=== PATIENT | female | born 1950 | race Caucasian/White ===

== ENCOUNTER 2022-07-26 08:59 | Observation (INO) ==
[2022-07-26] MEDS ORDERED: ONDANSETRON 4 MG OD TAB PO STA (09:07)
[2022-07-26] MEDS ORDERED: oxyCODONE HCL IR 5 MG TAB (IMMEDIATE RELEASE) PO STA (09:07)
[2022-07-26] MEDS ORDERED: ACETAMINOPHEN 500 MG TAB PO STA (09:07)
[2022-07-26] MEDS ORDERED: DIPHTHERIA/TETANUS/PERTUSSIS 0.5 ML SYR/VIAL IM ONE (09:07)
--- NOTE | 2022-07-26 09:12 | Emergency Department Note ---
Impression & Plan Fracture of proximal end of right tibia, Abrasion of right arm, Effusion of right knee joint, Fall ED Provider Note NAME: JAMEE BEAR AGE: 72 SEX: F : 1950 ARRIVES VIA: Ambulance INFORMANT: [Patient] ED PROVIDER(S): [Richmond Crouch MD] CHIEF COMPLAINT: Fall HISTORY OF PRESENT ILLNESS: The patient is a 72-year-old female who states that last night, she lost her footing and fell down 3 stairs. She twisted her right knee and suffered an abrasion to the right posterior upper arm. She did not lose consciousness or strike her head. There is no neck pain or back pain, chest pain or abdominal pain. She tried to rest the knee throughout the evening but this morning, could not bear any weight. The pain is a 10/10 when she tries to stand. She presents for evaluation. Patient believes she may be due for a tetanus booster, she is not on any blood thinning medications. The right arm wound is no longer bleeding and she believes it is fairly superficial. REVIEW OF SYSTEMS: See HPI for pertinent positives and negatives. A total of ten systems were reviewed and were otherwise negative. PMHx/PSHx: See Below SOCIAL HISTORY: See Below. PHYSICAL EXAM: GENERAL: Patient is in no acute distress. HEENT: No acute trauma, normocephalic atraumatic, mucous membranes moist, no nasal congestion, no scleral icterus. NECK: No stridor, no adenopathy, nontender posterior C-spine, trachea is midline. LUNGS: Clear to auscultation bilaterally, no wheeze, no rhonchi, breath sounds equal. Breath sounds are diminished bilaterally. HEART: Without murmurs gallops or rubs, regular rate and rhythm. ABDOMEN: Soft, nontender, bowel sounds positive, no peritonitis. EXTREMITIES: No cyanosis. The patient has no deformity to the right knee but there is some joint effusion present. She is tender diffusely about the knee. The patella and quadriceps tendons appear intact. The patella is in proper position. There is some contusion along the medial aspect of the knee. The patient has a 3 to 4 cm abrasion to the posterior aspect of the right upper arm/tricep. The abrasion is oval-shaped. No bleeding. NEUROLOGIC: Oriented x 3, no acute motor or sensory deficits, no focal weakness. SKIN: No rash, no jaundice, no diaphoresis. Back: Nontender thoracic or lumbar spine. No contusions. DIFFERENTIAL DIAGNOSIS: Fracture, dislocation, contusion, joint effusion, intra-abdominal bleeding, pneumothorax, intrathoracic injury, intracranial injury, as well as other pathologies. EMERGENCY DEPARTMENT COURSE/PROCEDURES: MEDICAL DECISION MAKING: There is no leukocytosis or worrisome anemia. There is a normal platelet count. No renal failure or significant electrolyte abnormality. COVID test is negative. Right knee film shows a fracture to both the tibial spines with extension to the lateral tibial plateau. A joint effusion was present. No bony malalignment. No significant displacement of the fracture fragments. On exam, the patient did have a right knee joint effusion, she had pain to move the knee. There was no evidence for right lower extremity neurovascular compromise. She had an abrasion to her right tricep. Patient received oral Tylenol, oral oxycodone, oral Zofran. She was given an Adacel booster IM. The patient is unable to ambulate, she lives alone. I did speak with orthopedics, Dr. Lake. He recommended rehab and toe-touch weightbearing if tolerated. He did not feel the patient would require orthopedic surgery. As the patient lives alone, as she cannot ambulate, she cannot be discharged. Case management has been consulted and is working on inpatient rehab at an outside facility versus rehab here in our facility. The on-call hospitalist was also consulted. Past Med/Surg History Medical History No significant medical problems Social History Smoking Status: Current every day smoker Tobacco Type: Cigarettes Feels Safe at Home: Yes Allergies Allergies Allergy/AdvReac Type Severity Reaction Status Date / Time No Known Allergies Allergy Verified 05/31/14 08:10 Home Meds Home Medications Medication Instructions Recorded Confirmed CALCIUM CARBONATE-VITAMIN D 2 mg PO DAILY ##0 12/26/13 (CALCIUM 600+D3) Multiple Vitamins W/ Minerals 1 tab PO DAILY ##0 12/26/13 (Multivitamins) ASPIRIN (ASPIRIN EC) 325 mg PO DAILY ##0 05/31/14 Results & Data (ED) Vital Signs Vital Signs - 24 hr 07/26/22 09:00 Temperature 36.8 C Temperature Source Oral Pulse Rate 108 H Respiratory Rate 18 Respiratory Effort / Characteristics Non-Labored Respiratory Depth Normal Respiratory Pattern Regular Blood Pressure 168/84 H Blood Pressure Mean 112 Blood Pressure Position Semi-fowlers Pulse Oximetry 94 Oxygen Delivery Method Room Air Sepsis Recent Fever Within 48 Hours No Sepsis New/Unexplained Change in Mental Status N/A Sepsis Action Taken by Nursing No Action Required Home Medications Current Medication List: was personally reviewed by me Laboratory Data Attestation: I reviewed the patient's lab results. Result diagrams: 07/26/22 10:00 07/26/22 10:00 Lab Results 07/26/22 07/26/22 07/26/22 Range/Units 09:55 10:00 10:00 WBC 10.31 (4.8-10.8) K/ul RBC 4.77 (3.93-5.22) M/uL Hgb 15.0 (12.0-16.0) g/dl Hct 42.9 (34.1-44.9) % MCV 89.9 (80.0-100.0) fL MCH 31.4 (25.0-34.0) pg MCHC 35.0 (32.0-36.0) g/dL RDW Std Deviation 47.0 H (36.4-46.3) fL RDW Coeff of Diane 14.3 (11.5-14.5) % Plt Count 174 (130-400) K/uL MPV 9.0 L (9.4-12.3) fL Sodium 133 L (136-145) mmol/L Potassium 4.2 (3.5-5.1) mmol/L Chloride 98 (98-107) mmol/L Carbon Dioxide 25 (21-32) mmol/L Anion Gap 10 (3-11) BUN 15 (6-23) mg/dl Creatinine 0.85 (0.6-1.2) mg/dl Est Cr Clr Drug Dosing 50.9 ml/min Est GFR ( Amer) 80.5 ml/min Est GFR (Non-Af Amer) 69.4 ml/min BUN/Creatinine Ratio 17.6 (10-20) Glucose 96 (70-99(Fasting)) mg/dl Calcium 9.1 (8.5-10.1) mg/dl SARS-CoV-2, RNA, NAAT NEGATIVE (NEGATIVE) Administered Medications Discontinued Medications Acetaminophen (Acetaminophen 500 Mg Tab) 1,000 mg PO NOW STA Stop: 07/26/22 09:08 Last Admin: 07/26/22 09:14 Dose: 1,000 mg Documented By: GET Diphtheria/Pertussis/Tetanus Vacc (Diphtheria/Tetanus/Pertussis 0.5 Ml Syr/Vial) 0.5 ml IM .ONCE ONE Stop: 07/26/22 09:08 Last Admin: 07/26/22 09:15 Dose: 0.5 ml Documented By: GET Ondansetron HCl (Ondansetron 4 Mg Od Tab) 4 mg PO NOW STA Stop: 07/26/22 09:08 Last Admin: 07/26/22 09:15 Dose: 4 mg Documented By: GET Oxycodone HCl (Oxycodone Hcl Ir 5 Mg Tab (Immediate Release)) 5 mg PO NOW STA Stop: 07/26/22 09:08 Last Admin: 07/26/22 09:15 Dose: 5 mg Documented By: GET Imaging Data Radiologist's Impression: Knee X-Ray 07/26/22 09:07 XR knee RT 3V CLINICAL HISTORY: Right knee pain following fall. COMPARISON: None FINDINGS: Alignment of the right knee is anatomic. Moderate joint effusion is present. No lipohemarthrosis is identified. Medial knee soft tissue swelling is present. Lucencies within the tibial spines are noted. There are adjacent ossific densities. The findings favor an acute avulsion fracture. There is also subtle lucency within the lateral tibial plateau suggestive of acute fracture. A tiny ossific fragment lateral to the lateral tibial plateau is noted. Joint spaces are preserved. IMPRESSION: 1. Lucencies within the tibial spines with adjacent ossific densities. The findings favor acute avulsion fracture of the tibial spines. Fracture likely extends into the lateral tibial plateau. No depression identified although suboptimally assessed by radiography. 2. Possible Segond fracture. This can be seen in setting of an ACL tear. 3. Moderate joint effusion. Medial knee soft tissue swelling. ACT 112: Negative or not required by law. Electronically signed by: Jose Rafael Crystal M.D. 07/26/2022 9:40 AM Discharge Plan Visit Data Chief Complaint: Fall Stated Complaint: Fall ED Provider: Richmond Crouch Discharge Problem: Fracture of proximal end of right tibia, Abrasion of right arm, Effusion of right knee joint, Fall Patient Disposition: Admitted As Inpatient Condition: Good Forms Stand Alone Forms: My [facility] Instant Opinion Prescriptions Prescriptions: No Action CALCIUM CARBONATE-VITAMIN D (CALCIUM 600+D3) 1 TAB tablet 2 mg PO DAILY Qty: 0 Multiple Vitamins W/ Minerals (Multivitamins) 1 CHW CHW 1 tab PO DAILY Qty: 0 ASPIRIN (ASPIRIN EC) 325 MG tablet 325 mg PO DAILY Qty: 0 Referrals Referrals: Bernarda Bermudez MD [Physician] -
--- NOTE | 2022-07-26 09:42 | XRay Report ---
XR knee RT 3V CLINICAL HISTORY: Right knee pain following fall. COMPARISON: None FINDINGS: Alignment of the right knee is anatomic. Moderate joint effusion is present. No lipohemart hrosis is identified. Medial knee soft tissue swelling is present. Lucencies within the tibial spines are noted. There are adjacent ossific densities. The findings favor an acute avulsion fracture. Ther e is also subtle lucency within the lateral tibial plateau suggestive of acute fracture. A tiny ossif ic fragment lateral to the lateral tibial plateau is noted. Joint spaces are preserved. IMPRESSION: 1. Lucencies within the tibial spines with adjacent ossific densities. The findings favor acute avuls ion fracture of the tibial spines. Fracture likely extends into the lateral tibial plateau. No depres elvin identified although suboptimally assessed by radiography. 2. Possible Segond fracture. This can be seen in setting of an ACL tear. 3. Moderate joint effusion. Medial knee soft tissue swelling. ACT 112: Negative or not required by law. Electronically signed by: Jose Rafael Crystal M.D. 07/26/2022 9:40 AM
[2022-07-26 10:09] LABS: Hematocrit (blood only) 42.9 % (34.1-44.9); Mean Corpuscular Hemoglobin 31.4 pg (25.0-34.0); Mean Corpuscular Volume 89.9 fL (80.0-100.0); Platelet Count 174 K/uL (130-400); RDW Coefficient of Variation 14.3 % (11.5-14.5); Red Blood Count 4.77 M/uL (3.93-5.22); White Blood Count 10.31 K/ul (4.8-10.8)
[2022-07-26 10:28] LABS: BUN Creatinine Ratio 17.6 (10-20); Calcium 9.1 mg/dl (8.5-10.1); Creatinine Clr Calc Pharmacy 50.9 ml/min; Est GFR (African American) 80.5 ml/min; Est GFR (Non-African American) 69.4 ml/min; Potassium 4.2 mmol/L (3.5-5.1)
--- NOTE | 2022-07-26 10:30 | History & Physical Report ---
Date of Service July 26, 2022 Assessment & Plan (1) Fracture of proximal end of right tibia: Plan: -Admit to med/surge for observation -Xray of the right knee showing acute avulsion fracture of the tibial spines of the right knee, likely extending into the right tibial plateau. Possible ACL tear as well -No other acute trauma noted on the imaging or exam -Patient currently unable to bear weight on the right knee -Ortho consult placed -PT/OT consult placed, patient would prefer to have PT/OT setup at home -ICE and raj wrap to the right knee -Q6h tylenol, q6h prn toradol for mod pain with q6h prn tramadol for breakthrough pain (2) Fall: Plan: -No other acute trauma -Patient did not hit head or lose consciousness, not on anticoagulations besides daily aspirin (3) Arthritis: Plan: -[employer] aspirin Plan The patient was discussed with Dr. Valencia at the time of the exam History of Present Illness Chief Complaint: Fall/right knee pain Primary Care Provider: NO PCP Doreen is a 72 year old female with a PMH significant for arthritis who presented to the [facility] ED on 07/26/22 with a chief complaint of right knee pain and ambulatory dysfunction. Per the patient, she fell down 3 steps last night causing her to twist her right knee and land on her right arm. She denies hitting her head or losing consciousness. The patient tried to rest her right knee overnight but has been unable to bear weight since the injury. In the ED the patient was found to be afebrile, hemodynamically stable, and stable on RA. She was without lab abnormalities; xray of the right knee revealed "Lucencies within the tibial spines with adjacent ossific densities. The findings favor acute avulsion fracture of the tibial spines. Fracture likely extends into the lateral tibial plateau. No depression identified although suboptimally assessed by radiography. Possible Segond fracture. This can be seen in setting of an ACL tear. Moderate joint effusion. Medial knee soft tissue swelling." The ED staff spoke with orthopedics who recommended PT/OT and rehab. At the time of the exam the patient was lying in bed in no acute distress. She states that she lives alone at home and was in her normal state of health. She was going down her stairs and slipped while going down the last few. She twisted her knee and was unable to bear weight. I spoke with her regarding her treatments options as orthopedics did not recommend surgery, she would prefer to have PT/OT setup at home instead of going to inpatient rehab. She has a full bathroom on her first floor with a shower chair and walker if needed. She also has multiple friends and family who live close by and can provide assistance if she needs. She is ok with coming [facility] so we can get everything setup. She states that the pain is located mostly on the lateral and medial aspects of her right knee. She feels as though it is still at the present time and has significant pain when flexion of her right knee. She denies pain in any other part of her body Allergies Allergy/AdvReac Type Severity Reaction Status Date / Time No Known Allergies Allergy Verified 05/31/14 08:10 Home Medications Medication Instructions Recorded Confirmed Type CALCIUM CARBONATE-VITAMIN D 2 mg PO DAILY ##0 12/26/13 History (CALCIUM 600+D3) Multiple Vitamins W/ Minerals 1 tab PO DAILY ##0 12/26/13 History (Multivitamins) ASPIRIN (ASPIRIN EC) 325 mg PO DAILY ##0 05/31/14 History Past Med/Surg History Medical History (Updated 07/26/22 @ 11:12 by Leonel Watts PA-C) No significant medical problems arthritis Social History Smoking Status: Current every day smoker Tobacco Type: Cigarettes Feels Safe at Home: Yes Review of Systems Review of Systems: Denies current fever, chills, headache, changes in vision, hearing, taste, and smell, chest pain, SOB, cough, abdominal pain, nausea, vomiting, diarrhea, hematemesis, melena, dysuria, hematuria All systems have been reviewed and are otherwise negative. Physical Exam Physical Exam: Physical Exam: General: In no acute distress, stated age, well-nourished, good hygiene HEENT: Normocephalic, atraumatic, no scleral icterus, pupils around round, symmetrical, and reactive to light, moist mucus membranes, trachea midline, no thyromegaly Chest/Pulm: No respiratory distress, symmetrical chest expansion, clear breath sounds throughout Cardiac: RRR, no murmurs noted Abdomen: Negative for ascites and bruising, normoactive bowel sounds, soft, non-tender to palpation throughout Musculoskeletal: Patient with moderate joint swelling of the right knee, no crepitus with palpation of the RLE, patient with decreased flexion and extension of the right knee due to pain Extremities: Radial, dorsalis pedis, and posterior tibial pulses are intact and symmetrical, no edema noted in the BL LE's Skin: Warm, dry, no rashes , lesions, or scars noted Neuro: Alert and oriented to person, place, month, year, and president, no focal defects, CN II-XII tested and intact, finger to nose test negative, no tremors noted Psych: No acute distress, calm and cooperative during the exam Results & Data Results & Data ([facility]) Vital Signs (Past 12 Hours) Vital Signs Temp Pulse Resp BP Pulse Ox O2 Del Method 07/26/22 09:00 36.8 C 108 H 18 168/84 H 94 Room Air Laboratory Results Abnormal lab results 07/26/22 07/26/22 Range/Units 10:00 10:00 RDW Std Deviation 47.0 H (36.4-46.3) fL MPV 9.0 L (9.4-12.3) fL Sodium 133 L (136-145) mmol/L Diagnostic Findings Knee X-Ray 07/26/22 09:07 XR knee RT 3V CLINICAL HISTORY: Right knee pain following fall. COMPARISON: None FINDINGS: Alignment of the right knee is anatomic. Moderate joint effusion is present. No lipohemarthrosis is identified. Medial knee soft tissue swelling is present. Lucencies within the tibial spines are noted. There are adjacent ossific densities. The findings favor an acute avulsion fracture. There is also subtle lucency within the lateral tibial plateau suggestive of acute fracture. A tiny ossific fragment lateral to the lateral tibial plateau is noted. Joint spaces are preserved. IMPRESSION: 1. Lucencies within the tibial spines with adjacent ossific densities. The findings favor acute avulsion fracture of the tibial spines. Fracture likely extends into the lateral tibial plateau. No depression identified although suboptimally assessed by radiography. 2. Possible Segond fracture. This can be seen in setting of an ACL tear. 3. Moderate joint effusion. Medial knee soft tissue swelling. ACT 112: Negative or not required by law. Electronically signed by: Jose Rafael Crystal M.D. 07/26/2022 9:40 AM ECG Additional Comments: No ECG obtained prior to admission Code Status & VTE Plan Code Status Full OCde Supervising Physician Co-Signing Physician Notes I supervised Leonel Watts PA-C on this admission. I interviewed and examined the patient independently of him. The plan is as written in his note except for any following changes/exceptions: None 72yo F w/ no major PMH who presents with mechanical fall and right tibial fracture. Patient fell down some steps, had immediate pain, and went to bed. This morning, she had 10/10 pain and had to come to the ER. In ER, x-ray showed likely "acute avulsion fracture of the tibial spines. Fracture likely extends into the lateral tibial plateau." Will admit for PT/OT. Patient does not want to go to SNF or rehab, but is willing to stay overnight to arrange home support. Consult orthopedics who was contacted in the ER re: Possible ACL tear. Pain control PRN. PG Care Time/CCT Total # of Minutes Spent Total Time Spent with Patient: Total time spent is greater than 50% in coordination of care (as documented) at patient's floor/unit and/or counseling patient: Coding Level of Care Code New Pt INT OBSERVATION CARE 72M LVL 3 Patient Type New Medical Decision Making Moderate Complexity Diagnoses Fracture of proximal end of right tibia S82.101A Encounter type: initial encounter Fracture morphology: unspecified fracture morphology Fracture type: closed Fall W19.XXXA Encounter type: initial encounter Arthritis M19.90 (1) Fracture of proximal end of right tibia Encounter type: initial encounter Fracture morphology: unspecified fracture morphology Fracture type: closed Qualified Code(s): S82.101A - Unspecified fracture of upper end of right tibia, initial encounter for closed fracture (2) Fall Encounter type: initial encounter Qualified Code(s): W19.XXXA - Unspecified fall, initial encounter
[2022-07-26] MEDS: traMADol HCL 50 MG TABLET PO PRN ×2 (14:00→18:02)
[2022-07-26] MEDS: ACETAMINOPHEN 325 MG TAB PO PRN ×2 (14:00→18:02)
--- NOTE | 2022-07-26 16:10 | Orthopedic Consultation ---
Date of Service July 26, 2022 Assessment & Plan (1) Fracture of proximal end of right tibia: With the tibial spine fracture in the lateral tibial plateau avulsion fracture, she may have torn her ACL. It is difficult to tell. She has a large effusion. I told her she can be weightbearing as tolerated as pain allowed. So likely take her 6 to 8 weeks to heal. She should continue with ice on the right knee. She is orthopedically stable for discharge when ready. I will see her in the office in about 10 days to see how she is doing and possibly aspirate the knee if the effusion persists. Full orthopedic discharge instructions were placed in the discharge summary. History of Present Illness Reason for Consultation: Right tibia fracture. Requesting Physician: . Attending Physician: Cristian Valencia MD Doreen is a pleasant 72-year-old female who fell late last night. She does not recall her mechanism of injury. She began having severe right knee pain. She came to the emergency room where radiographs demonstrated small avulsion fractures of the tibial spine and a possible Segond fracture fragment. She had a right knee effusion. She was unable to bear weight so she was admitted to the medical service. Orthopedics was consulted to evaluate and treat.. Allergies Allergy/AdvReac Type Severity Reaction Status Date / Time No Known Allergies Allergy Verified 05/31/14 08:10 Home Medications Medication Instructions Recorded Confirmed Type CALCIUM CARBONATE-VITAMIN D 2 mg PO DAILY ##0 12/26/13 History (CALCIUM 600+D3) Multiple Vitamins W/ Minerals 1 tab PO DAILY ##0 12/26/13 History (Multivitamins) ASPIRIN (ASPIRIN EC) 325 mg PO DAILY ##0 05/31/14 History Past Med/Surg History Medical History No significant medical problems arthritis Social History Smoking Status: Current every day smoker Tobacco Type: Cigarettes Cigarettes Per Day: 1/2 pack a day; Hx Alcohol Use: Yes Alcohol type: wine Hx Substance Use: No Preferred Language: Khmer Communication Ability: Effective President Of [place] Required: No Beliefs That Will Affect Care: None Current Living Situation: Alone Feels Safe at Home: Yes Review of Systems All systems reviewed & are unremarkable except as noted in HPI & below. Physical Exam On physical examination of the right knee, there is a large joint effusion. She has decreased range of motion. She has little bit of ecchymosis in the area. She is neurovascular intact.. Constitutional WD/WN, vitals as above Eyes PERRL, conjunctivae normal, anicteric sclerae ENMT external ear and nose normal, oropharynx normal Neck trachea midline, no thyromegaly Respiratory normal respiratory effort, lungs clear to auscultation Cardiovascular RRR, no murmur, no edema Gastrointestinal (Abdomen) normal bowel sounds, soft, nontender, no hepatosplenomegaly Skin no rashes, warm and dry Psychiatric A+Ox3, euthymic affect Results & Data Results & Data Laboratory Results . Diagnostic Findings X-rays of the right knee do show small avulsion fractures of the tibial spine. There is a little fracture off the lateral tibial plateau as well. There is signs of a large joint effusion.. PG Care Time/CCT Total # of Minutes Spent Total Time Spent with Patient: Total time spent is greater than 50% in coordination of care (as documented) at patient's floor/unit and/or counseling patient: Coding Level of Care Code 84184 Inpt Consult Level 4 Diagnoses Fracture of proximal end of right tibia S82.101A Encounter type: initial encounter Fracture morphology: unspecified fracture morphology Fracture type: closed (1) Fracture of proximal end of right tibia Encounter type: initial encounter Fracture morphology: unspecified fracture morphology Fracture type: closed Qualified Code(s): S82.101A - Unspecified fracture of upper end of right tibia, initial encounter for closed fracture
[2022-07-26] MEDS: KETOROLAC TROMETHAMINE 15 MG/ML VIAL IV PRN (19:57)
[2022-07-27] MEDS: KETOROLAC TROMETHAMINE 15 MG/ML VIAL IV PRN ×2 (05:48→10:58)
[2022-07-27] MEDS: CEROVITE ADV FORMULA TAB PO SCH (09:27)
[2022-07-27] MEDS: CALCIUM 600MG + VIT D 400 IU TAB PO SCH (09:27)
[2022-07-27] MEDS: ASPIRIN 325 MG ECTAB PO SCH (09:27)
[2022-07-27] MEDS: ACETAMINOPHEN 325 MG TAB PO PRN (17:45)
[2022-07-27] MEDS: traMADol HCL 50 MG TABLET PO PRN ×2 (17:46→21:48)
--- NOTE | 2022-07-27 22:24 | Hospitalist Progress Note ---
Date of Service July 27, 2022 Assessment & Plan (1) Fracture of proximal end of right tibia: Plan: -Admit to med/surge for observation -Xray of the right knee showing acute avulsion fracture of the tibial spines of the right knee, likely extending into the right tibial plateau. Possible ACL tear as well -No other acute trauma noted on the imaging or exam -Patient currently unable to bear weight on the right knee -Ortho consult placed -PT/OT consult placed, patient would prefer to have PT/OT setup at home -ICE and raj wrap to the right knee -Q6h tylenol, q6h prn toradol for mod pain with q6h prn tramadol for breakthrough pain (2) Fall: Plan: -No other acute trauma -Patient did not hit head or lose consciousness, not on anticoagulations besides daily aspirin (3) Arthritis: Plan: -GRILL CHEF aspirin Admission and Anticipated Discharge Date Admission Date: July 26, 2022 Subjective 72 yo female reports no new symptoms. She is asking for a brace. will discuss with ortho. Review of Systems Review of Systems: All systems reviewed & are unremarkable except as noted in HPI & below Physical Exam Physical Exam: General:In no acute distress, stated age, well- nourished, good hygiene HEENT:Normocephalic, atraumatic, no scleral icterus, pupils around round, symmetrical, and reactive to light, moist mucus membranes, trachea midline, no thyromegaly Chest/Pulm:No respiratory distress, symmetrical chest expansion, clear breath sounds throughout Cardiac:RRR, no murmurs noted Abdomen:Negative for ascites and bruising, normoactive bowel sounds, soft, non-tender to palpation throughout Musculoskeletal:Patient with moderate joint swelling of the right knee, no crepitus with palpation of the RLE, patient with decreased flexion and extension of the right knee due to pain Extremities:Radial, dorsalis pedis, and posterior tibial pulses are intact and symmetrical, no edema noted in the BL LE's Skin:Warm, dry, no rashes , lesions, or scars noted Neuro:Alert and oriented to person, place, month, year, and president, no focal defects, CN II-XII tested and intact, finger to nose test negative, no tremors noted Psych:No acute distress, calm and cooperative during the exam Results & Data Results & Data ([facility]) Vital Signs (Past 12 Hours) Vital Signs Temp Pulse Resp BP Pulse Ox O2 Del Method 07/27/22 22:10 36.8 C 73 16 111/73 91 Room Air 07/27/22 15:10 36.8 C 75 18 118/70 95 Room Air PG Care Time/CCT Total # of Minutes Spent Total Time Spent with Patient: Total time spent is greater than 50% in coordination of care (as documented) at patient's floor/unit and/or counseling patient: Coding Level of Care Code 73021 Subseq Hosp Care Lvl 2 Diagnoses Fracture of proximal end of right tibia S82.101A Encounter type: initial encounter Fracture morphology: unspecified fracture morphology Fracture type: closed Fall W19.XXXA Encounter type: initial encounter Arthritis M19.90 Time Spent (min) 25 (1) Fracture of proximal end of right tibia Encounter type: initial encounter Fracture morphology: unspecified fracture morphology Fracture type: closed Qualified Code(s): S82.101A - Unspecified fracture of upper end of right tibia, initial encounter for closed fracture (2) Fall Encounter type: initial encounter Qualified Code(s): W19.XXXA - Unspecified fall, initial encounter
[2022-07-28] MEDS: ACETAMINOPHEN 325 MG TAB PO PRN (05:05)
[2022-07-28] MEDS: traMADol HCL 50 MG TABLET PO PRN ×2 (05:06→09:13)
[2022-07-28] MEDS: CALCIUM 600MG + VIT D 400 IU TAB PO SCH (09:02)
[2022-07-28] MEDS: ASPIRIN 325 MG ECTAB PO SCH (09:02)
[2022-07-28] MEDS: CEROVITE ADV FORMULA TAB PO SCH (09:03)
--- NOTE | 2022-07-28 13:48 | Discharge Summary ---
Date of Service July 28, 2022 Admission HPI Per Admitting Provider Doreen is a 72 year old female with a PMH significant for arthritis who presented to the [facility] ED on 07/26/22 with a chief complaint of right knee pain and ambulatory dysfunction. Per the patient, she fell down 3 steps last night causing her to twist her right knee and land on her right arm. She denies hitting her head or losing consciousness. The patient tried to rest her right knee overnight but has been unable to bear weight since the injury. In the ED the patient was found to be afebrile, hemodynamically stable, and stable on RA. She was without lab abnormalities; xray of the right knee revealed "Lucencies within the tibial spines with adjacent ossific densities. The findings favor acute avulsion fracture of the tibial spines. Fracture likely extends into the lateral tibial plateau. No depression identified although suboptimally assessed by radiography. Possible Segond fracture. This can be seen in setting of an ACL tear. Moderate joint effusion. Medial knee soft tissue swelling." The ED staff spoke with orthopedics who recommended PT/OT and rehab. At the time of the exam the patient was lying in bed in no acute distress. She states that she lives alone at home and was in her normal state of health. She was going down her stairs and slipped while going down the last few. She twisted her knee and was unable to bear weight. I spoke with her regarding her treatments options as orthopedics did not recommend surgery, she would prefer to have PT/OT setup at home instead of going to inpatient rehab. She has a full bathroom on her first floor with a shower chair and walker if needed. She also has multiple friends and family who live close by and can provide assistance if she needs. She is ok with coming in for [facility] so we can get everything setup. She states that the pain is located mostly on the lateral and medial aspects of her right knee. She feels as though it is still at the present time and has significant pain when flexion of her right knee. She denies pain in any other part of her body Principal Diagnosis as stated below Discharge Exam General:In no acute distress, stated age, well-nourished, good hygiene HEENT:Normocephalic, atraumatic Chest/Pulm:No respiratory distress MSK: Brace around affteted knee Skin:Warm, dry, no rashes , lesions, or scars noted Neuro:Alert and oriented to person, Psych:No acute distress, calm and cooperative during the exam Discharge Data Allergies Allergy/AdvReac Type Severity Reaction Status Date / Time No Known Allergies Allergy Verified 05/31/14 08:10 Consultations 07/26/22 10:06 ED Decision to Admit Stat 07/26/22 11:02 Consult Orthopedic Surgery Routine Hospital Course (1) Fracture of proximal end of right tibia: -Admit to med/surge for observation -Xray of the right knee showing acute avulsion fracture of the tibial spines of the right knee, likely extending into the right tibial plateau. Possible ACL tear as well -No other acute trauma noted on the imaging or exam -Ortho consult placed : Possible ACL tear given her the tibial spine fracture in the lateral tibial plateau avulsion fracture, and large effusion.Can be weightbearing as tolerated as pain allowed. So likely take her 6 to 8 weeks to heal. Discharge instructions noted below. -PT/OT consult placed, -brace given. 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 ) Diet: Regular Addtl Attending Provider Instructions: Good afternoon Mrs. Castro, Recommend tramadol for moderate-severe pain medicine as needed. Will recommend tylenol around the clock every 8 hours to limit pain for the next 2 weeks. I also recommend taking stool softeners to help limit constipation that could be caused by tramadol. If you don't have a bowel movement in 2 days with no relief from the medicine prescribed, then please try miralax. In regards to your followup, if appears the Orthopedist would like for you to call their office for an appointment. Best regards, Navarro Hoskins Senior Case Manager Provider Instructions: ORTHOPEDIC INSTRUCTIONS Activity Recommendations: Weightbearing as tolerated as pain allows Use ice for 20 minutes on and 20 minutes off to help with the effusion. Follow-Up Visit: Follow-up with Dr. Lake in about 10 days. We will evaluate the knee closer and possibly aspirate the knee if necessary. Please call the office to make an appointment for a time that works for you. Pending Studies at Discharge: No Stand-Alone Forms: My [facility] [employer], Opioid Pain Management, Smoking Cessation Medications and DC Order Prescriptions: New acetaminophen 325 mg Tablet 650 mg PO Q8H Qty: 60 0RF tramadol 50 mg Tablet 50 mg PO Q4H PRN (Reason: pain, moderate) Qty: 30 0RF sennosides-docusate sodium [Senna with Docusate Sodium] 8.6-50 mg tablet 1 tab-cap PO DAILY PRN (Reason: constipation) Qty: 30 0RF Continued CALCIUM CARBONATE-VITAMIN D (CALCIUM 600+D3) 1 TAB tablet 2 mg PO DAILY Qty: 0 Multiple Vitamins W/ Minerals (Multivitamins) 1 CHW CHW 1 tab PO DAILY Qty: 0 ASPIRIN (ASPIRIN EC) 325 MG tablet 325 mg PO DAILY Qty: 0 Discharge Orders: Discharge Order (Routine); Ordered 07/28/22 Ordered By: Navarro Jaffe/Other Patient Handouts: Healthy Eating on the Go Admission Data Admit Date/Time: 07/26/22 11:00 Attending Provider: Navarro Worthy Admit Provider: Cristian Valencia Primary Care Provider: PCP,NO Other Providers: Martell Lake ; Cristian Valencia ; [facility] ; Regan Villanueva Other Interventions: Discharge Summary Assessment (RN) Last Done: 07/28/22 15:57 Coding Level of Care Code 26633 OBS Care - Discharge Diagnoses Fracture of proximal end of right tibia S82.101A Encounter type: initial encounter Fracture morphology: unspecified fracture morphology Fracture type: closed Fall W19.XXXA Encounter type: initial encounter Arthritis M19.90
== END 2022-07-28 16:59 | disposition home or self-care (01) ==
LOC: 3W 08:59 → ED 08:59 → SUATTDRO 11:00 → 3W 12:29
DX: F17.210 Nicotine dependence, cigarettes, uncomplicated; S82.101A Unspecified fracture of upper end of right tibia, initial encounter for closed fracture; Z79.82 Long term (current) use of aspirin; S40.811A Abrasion of right upper arm, initial encounter; W10.9XXA Fall (on) (from) unspecified stairs and steps, initial encounter; M19.90 Unspecified osteoarthritis, unspecified site; M25.461 Effusion, right knee

== ENCOUNTER 2022-11-03 08:00 | Inpatient (IN) ==
--- NOTE | 2022-11-03 08:11 | Emergency Department Note ---
Impression & Plan Acute GI bleeding, Tobacco abuse, Anemia ED Provider Note NAME: JAMEE BEAR AGE: 72 SEX: F : 1950 ARRIVES VIA: Walk-In INFORMANT: [Patient][, ] ED PROVIDER(S): [Sujit Lacy MD] Chief Complaint: Rectal bleeding HPI: Patient presents due to concern for rectal bleeding that began this morning. The patient states that she felt as though she she may have had some associated diarrhea but when she looked she seemed to have bloody bowel movements. Patient denies any chest pains or shortness of breath. No fatigue. The patient does take a baby aspirin last taken last evening the patient does smoke. The patient does drink wine occasionally with dinner but not every day. Patient did have a colonoscopy at 64 and was told to return in 10 years. No family history in parents or siblings of colon cancer. Remote history of colon cancer in an aunt. Patient has not had any GI bleeding before. Patient denies any vomiting or abdominal pains. ROS: See HPI for pertinent positives and negatives. A total of 10 systems were reviewed and otherwise negative. Past medical history: See below Surgical history: See below Social history: See below Physical Exam: GENERAL: NAD, [wearing a mask,] non-toxic. EYE EXAM: Normal conjunctiva. PERRL, no anisocoria and EOM's grossly intact w/o pain. NECK: Supple, no nuchal rigidity, no adenopathy, non-tender. No signs of meningismus. FROM of the neck with good chin to chest and neck extension. No stridor. LUNGS: Clear to auscultation. Normal chest wall mechanics. HEART: NSR, no MRG. ABDOMEN: Abdomen soft, non-tender, normo-active bowel sounds, no masses, no rebound or guarding. BACK: No CVA TTP. SKIN: No rashes and no bruising. Rectal: Nonthrombosed nonbleeding hemorrhoid, dark stool noted with blood, heme positive UPPER EXTREMITIES: Upper extremities are grossly normal. LOWER EXTREMITIES: Grossly normal, no edema. NEURO EXAM: A&O x3, cranial nerves II-XII grossly intact, normal speech, moves all 4 extremities. Differential diagnoses: Diverticulosis, AVM, coagulopathy, colitis, inflammatory bowel disease, malignancy, Radha-Briceño tear, esophagitis, peptic ulcer disease, variceal bleed, gastritis, epistaxis, fissure, hemorrhoids, as well as other pathologies. Course: Patient was seen and evaluated the bedside. Full history physical exam was performed. EKG interpreted by me Normal sinus rhythm, rate of 99 normal intervals normal axis no ST elevations. Imaging Studies: See Below Cardiac monitoring: An order was placed for continuous cardiac monitoring. The monitor shows a rate of 92 with sinus rhythm. MDM: Patient was seen due to concern for rectal bleeding. Blood work is obtained along with coags. Patient has a normal white count with mild anemia hemoglobin 11.6. Platelet count is normal. Patient does have mild hyponatremia. Elevated BUN/creatinine ratio. COVID-negative. I did speak with on-call gastroenterology MARIA E Schrader and after further discussion she does recommend admission at this time. I did speak with the on-call hospitalist Dr. Cardona. Given the patient's mixed appearing stool i.e. dark as well as mildly bright he only asked for 40 mg Protonix IV to be given at this time. This was ordered. I did convey the recommendations to the patient and she is agreeable to stay in hospital. Patient was admitted to the medicine service. Past Med/Surg History Surgical History No pertinent past surgical history Family History Grandfather Diabetes Father Diabetes Myocardial infarction Sister Hypertension Mother Myocardial infarction Denies family history of Ovarian cancer Prostate cancer Breast cancer Colorectal cancer Social History Smoking Status: Current every day smoker Tobacco Type: Cigarettes Cigarettes Per Day: 1/2 pack a day; Hx Alcohol Use: Yes Alcohol type: wine Hx Substance Use: No Preferred Language: Chadian Communication Ability: Effective Registered Land Surveyor Required: No Beliefs That Will Affect Care: None marital status: Current Living Situation: Alone Feels Safe at Home: Yes Assistive Devices: Walker and Wheelchair Allergies Allergies Allergy/AdvReac Type Severity Reaction Status Date / Time No Known Allergies Allergy Verified 07/30/22 13:21 Home Meds Home Medications Medication Instructions Recorded Confirmed aspirin 325 mg tablet 325 mg PO DAILY 07/30/22 07/30/22 Previous Rx's Medication Instructions Recorded acetaminophen 325 mg tablet 650 mg PO Q8H #60 tabs 07/28/22 sennosides 8.6 mg-docusate sodium 1 tab-cap PO DAILY PRN 07/28/22 50 mg tablet (Senna with Docusate constipation #30 tabs Sodium) tramadol 50 mg tablet 50 mg PO Q4H PRN pain, moderate 07/28/22 #30 tabs oxycodone-acetaminophen 5 mg-325 1 tab PO Q6H PRN pain #30 tabs 08/11/22 mg tablet (Percocet) Results & Data (ED) Vital Signs Vital Signs - 24 hr 11/03/22 08:06 11/03/22 09:00 11/03/22 10:00 Temperature 36.4 C L Temperature Source Temporal Artery Scan Pulse Rate 131 H Pulse Rate [Right Finger] 66 Respiratory Rate 16 14 Respiratory Effort / Characteristics Non-Labored Non-Labored Respiratory Depth Normal Normal Respiratory Pattern Regular Blood Pressure 106/69 Blood Pressure [Left Arm] 125/61 Blood Pressure Mean 81 Blood Pressure Mean [Left Arm] 82 Blood Pressure Position [Left Arm] Semi-fowlers Pulse Oximetry 98 97 97 Oxygen Delivery Method Room Air Room Air Room Air Sepsis Recent Fever Within 48 Hours No Sepsis New/Unexplained Change in Mental Status No Sepsis Action Taken by Nursing No Action Required Home Medications Current Medication List: was personally reviewed by me Laboratory Data Attestation: I reviewed the patient's lab results. Result diagrams: 11/03/22 08:51 11/03/22 08:51 Lab Results 11/03/22 11/03/22 11/03/22 Range/Units 08:21 08:51 08:51 WBC 7.90 (4.8-10.8) K/ul RBC 3.66 L (3.93-5.22) M/uL Hgb 11.6 L (12.0-16.0) g/dl Hct 33.5 L (34.1-44.9) % MCV 91.5 (80.0-100.0) fL MCH 31.7 (25.0-34.0) pg MCHC 34.6 (32.0-36.0) g/dL RDW Std Deviation 49.6 H (36.4-46.3) fL RDW Coeff of Diane 14.7 H (11.5-14.5) % Plt Count 226 (130-400) K/uL MPV 8.9 L (9.4-12.3) fL Immature Gran % (Auto) 0.4 % Neut % (Auto) 69.1 % Lymph % (Auto) 18.9 % Vernon % (Auto) 10.1 % Eos % (Auto) 0.9 % Baso % (Auto) 0.6 % Neut # (Auto) 5.46 (1.4-6.5) K/uL Lymph # (Auto) 1.49 (1.2-3.4) K/uL Vernon # (Auto) 0.80 (0.24-0.82) K/uL Eos # (Auto) 0.07 (0-0.50) K/uL Baso # (Auto) 0.05 (0-0.2) K/uL Immature Gran # (Auto) 0.03 H (0.00-0.02) K/uL PT (9.0-12.0) Seconds INR (0.9-1.1) APTT (21.0-31.0) Seconds PTT Ratio Sodium (136-145) mmol/L Potassium (3.5-5.1) mmol/L Chloride (98-107) mmol/L Carbon Dioxide (21-32) mmol/L Anion Gap (3-11) BUN (6-23) mg/dl Creatinine (0.6-1.2) mg/dl Est Cr Clr Drug Dosing ml/min Est GFR ( Amer) ml/min Est GFR (Non-Af Amer) ml/min BUN/Creatinine Ratio (10-20) Glucose (70-99(Fasting)) mg/dl Calcium (8.5-10.1) mg/dl Total Bilirubin (0.2-1.0) mg/dl AST (13-39) U/L ALT (7-52) U/L Alkaline Phosphatase (34-104) U/L Total Protein (6.0-8.3) gm/dl Albumin (3.4-5.0) gm/dl Globulin (2.5-4.0) gm/dl Albumin/Globulin Ratio (0.9-2) POC Stool Occult Blood Positive A (Negative) SARS-CoV-2, RNA, NAAT (NEGATIVE) Blood Type B Positive Antibody Screen NEGATIVE 11/03/22 11/03/22 11/03/22 Range/Units 08:51 08:51 09:40 WBC (4.8-10.8) K/ul RBC (3.93-5.22) M/uL Hgb (12.0-16.0) g/dl Hct (34.1-44.9) % MCV (80.0-100.0) fL MCH (25.0-34.0) pg MCHC (32.0-36.0) g/dL RDW Std Deviation (36.4-46.3) fL RDW Coeff of Diane (11.5-14.5) % Plt Count (130-400) K/uL MPV (9.4-12.3) fL Immature Gran % (Auto) % Neut % (Auto) % Lymph % (Auto) % Vernon % (Auto) % Eos % (Auto) % Baso % (Auto) % Neut # (Auto) (1.4-6.5) K/uL Lymph # (Auto) (1.2-3.4) K/uL Vernon # (Auto) (0.24-0.82) K/uL Eos # (Auto) (0-0.50) K/uL Baso # (Auto) (0-0.2) K/uL Immature Gran # (Auto) (0.00-0.02) K/uL PT 10.4 (9.0-12.0) Seconds INR 1.0 (0.9-1.1) APTT 24.8 (21.0-31.0) Seconds PTT Ratio 0.9 Sodium 135 L (136-145) mmol/L Potassium 4.1 (3.5-5.1) mmol/L Chloride 103 (98-107) mmol/L Carbon Dioxide 27 (21-32) mmol/L Anion Gap 5 (3-11) BUN 22 (6-23) mg/dl Creatinine 0.77 (0.6-1.2) mg/dl Est Cr Clr Drug Dosing 53.8 ml/min Est GFR ( Amer) 90.7 ml/min Est GFR (Non-Af Amer) 78.2 ml/min BUN/Creatinine Ratio 28.6 H (10-20) Glucose 101 H (70-99(Fasting)) mg/dl Calcium 8.5 (8.5-10.1) mg/dl Total Bilirubin 0.5 (0.2-1.0) mg/dl AST 11 L (13-39) U/L ALT 7 (7-52) U/L Alkaline Phosphatase 82 (34-104) U/L Total Protein 6.7 (6.0-8.3) gm/dl Albumin 3.9 (3.4-5.0) gm/dl Globulin 2.8 (2.5-4.0) gm/dl Albumin/Globulin Ratio 1.4 (0.9-2) POC Stool Occult Blood (Negative) SARS-CoV-2, RNA, NAAT NEGATIVE (NEGATIVE) Blood Type Antibody Screen Administered Medications Discontinued Medications Sodium Chloride (Nss) 500 mls @ 999 mls/hr IV .Q31M IVET Stop: 11/03/22 09:00 Last Infusion: 11/03/22 10:03 Dose: 0 mls/hr Documented By: Admin: 11/03/22 09:25 Dose: 999 mls/hr Documented By: AHMET Pantoprazole Sodium 40 mg/ (Syringe) 10 mls @ 5 mls/min IV NOW ONE Stop: 11/03/22 11:15 Last Admin: 11/03/22 12:21 Dose: 5 mls/min Documented By: STARLA Discharge Plan Visit Data Chief Complaint: Rectal Bleed Stated Complaint: BLOOD IN STOOL ED Provider: Sujit Lacy Discharge Problem: Acute GI bleeding, Tobacco abuse, Anemia Patient Disposition: Admitted As Inpatient Discharge Instructions Interventions: ED Discharge Assessment Last Done: 11/03/22 13:23
[2022-11-03] MEDS ORDERED: SODIUM CHLORIDE 0.9% 500 ML IV SCH (08:30)
[2022-11-03 09:10] LABS: Basophils # (auto) 0.05 K/uL (0-0.2); Basophils % (auto) 0.6 %; Eosinophils # (auto) 0.07 K/uL (0-0.50); Eosinophils % (auto) 0.9 %; Hematocrit (blood only) 33.5 % (34.1-44.9); Hemoglobin 11.6 g/dl (12.0-16.0); Immature Granulocytes # (auto) 0.03 K/uL (0.00-0.02); Immature Granulocytes % (auto) 0.4 %; Lymphocytes # (auto) 1.49 K/uL (1.2-3.4); Lymphocytes % (auto) 18.9 %; Mean Corpuscular Hemoglobin 31.7 pg (25.0-34.0); Mean Corpuscular Hgb Conc 34.6 g/dL (32.0-36.0); Mean Corpuscular Volume 91.5 fL (80.0-100.0); Mean Platelet Volume 8.9 fL (9.4-12.3); Monocytes % (auto) 10.1 %; Neutrophils # (auto) 5.46 K/uL (1.4-6.5); Neutrophils % (auto) 69.1 %; Platelet Count 226 K/uL (130-400); RDW Coefficient of Variation 14.7 % (11.5-14.5); RDW Standard Deviation 49.6 fL (36.4-46.3); Red Blood Count 3.66 M/uL (3.93-5.22)
[2022-11-03 09:24] LABS: Partial Thromboplastin Ratio 0.9; Partial Thromboplastin Time 24.8 Seconds (21.0-31.0); Prothrombin Time 10.4 Seconds (9.0-12.0)
[2022-11-03 10:07] LABS: Albumin Globulin Ratio 1.4 (0.9-2); Albumin Level 3.9 gm/dl (3.4-5.0); BUN Creatinine Ratio 28.6 (10-20); Bilirubin,Total 0.5 mg/dl (0.2-1.0); Calcium 8.5 mg/dl (8.5-10.1); Creatinine Clr Calc Pharmacy 53.8 ml/min; Est GFR (African American) 90.7 ml/min; Est GFR (Non-African American) 78.2 ml/min; Globulin 2.8 gm/dl (2.5-4.0); Potassium 4.1 mmol/L (3.5-5.1); Total Protein 6.7 gm/dl (6.0-8.3)
[2022-11-03] MEDS ORDERED: PANTOprazole 40 MG in SYRINGE 0 ML IV ONE ×2 (11:14→15:46)
--- NOTE | 2022-11-03 12:22 | History & Physical Report ---
Date of Service November 03, 2022 Assessment & Plan (1) GI bleed: Plan: Smoker, aspirin use Unclear if UGI vs. LGI bleed Pantoprazole 40mg IV BID Trend H&H q8h Consult gastroenterology - previous colonoscopy with Dr Stephens (2) Acute blood loss anemia: Plan: Type and screen sent (3) Smoking greater than 30 pack years: Plan: Encourage cessation Plan VTE Prophylaxis - SCDs Diet - clear liquids, NPO at midnight Disposition - observation status to med/tele Admission and Anticipated Discharge Date Admission Date: November 04, 2022 History of Present Illness Chief Complaint: Melena, dark red blood in stool Primary Care Provider: Regan Villanueva DO Doreen Castro is a 72 year old female who presents to the ER with dark red blood in stool mixed with black stool. She has never had this problem before but has been taking aspirin 325mg PO BID for her right knee pain recently (occasionally more than this) as it appears to be the only thing that works. No abdominal pain, nausea or vomiting. She woke up this morning with the black stool and dark red blood. She reports having a colonoscopy 8 years ago which was normal by Dr Stephens. Initial hemoglobin in the ER 11.6. She was given pantoprazole 40mg IV and on discussion by the ER provider with GI recommended admission under medicine at this time. Allergies Allergy/AdvReac Type Severity Reaction Status Date / Time No Known Allergies Allergy Verified 07/30/22 13:21 Home Medications Medication Instructions Recorded Confirmed Type acetaminophen 325 mg tablet 650 mg PO Q8H #60 tabs 07/28/22 07/30/22 Rx sennosides 8.6 mg-docusate sodium 1 tab-cap PO DAILY PRN 07/28/22 07/30/22 Rx 50 mg tablet (Senna with Docusate constipation #30 tabs Sodium) tramadol 50 mg tablet 50 mg PO Q4H PRN pain, moderate 07/28/22 07/30/22 Rx #30 tabs aspirin 325 mg tablet 325 mg PO DAILY 07/30/22 07/30/22 History oxycodone-acetaminophen 5 mg-325 1 tab PO Q6H PRN pain #30 tabs 08/11/22 08/11/22 Rx mg tablet (Percocet) Past Med/Surg History Surgical History No pertinent past surgical history Family History Grandfather Diabetes Father Diabetes Myocardial infarction Sister Hypertension Mother Myocardial infarction Denies family history of Ovarian cancer Prostate cancer Breast cancer Colorectal cancer Social History Smoking Status: Current every day smoker Tobacco Type: Cigarettes Cigarettes Per Day: 1/2 pack a day; Hx Alcohol Use: Yes Alcohol type: wine Hx Substance Use: No Preferred Language: Sinhala Communication Ability: Effective Sound Recording Technician Required: No Beliefs That Will Affect Care: None marital status: Current Living Situation: Alone Feels Safe at Home: Yes Assistive Devices: Cane and Glasses Review of Systems Review of Systems: All systems reviewed & are unremarkable except as noted in Subjective Physical Exam Constitutional: WD/WN, vitals as above Respiratory: normal respiratory effort, lungs clear to auscultation Cardiovascular: RRR, no murmur, no edema Extremities: normal capillary refill Gastrointestinal (Abdomen): normal bowel sounds, soft, nontender, no hepatosplenomegaly Musculoskeletal: no cyanosis or clubbing, extremities motor strength 5/5 Skin: no rashes, warm and dry Neurologic: moves all extremities and awake; not confused Psychiatric: A+Ox3, euthymic affect Results & Data Results & Data ([facility]) Vital Signs (Past 12 Hours) Vital Signs Temp Pulse Pulse Resp BP BP Pulse Ox 11/03/22 10:00 66 14 125/61 97 11/03/22 09:00 97 11/03/22 08:06 36.4 C L 131 H 16 106/69 98 O2 Del Method 11/03/22 10:00 Room Air 11/03/22 09:00 Room Air 11/03/22 08:06 Room Air Medications Administered ER Medications Given: NSS 500ml bolus Pantoprazole 40mg IV ECG Rate (beats per minute): 99 Rhythm: normal sinus Findings: + other (LVH); no acute ischemic change Comparison ECG Date: from (Dec 26, 2013) Change: no significant change Code Status & VTE Plan Code Status Full VTE Prophylaxis Plan VTE Prophylaxis will be ordered: Yes PG Care Time/CCT Total # of Minutes Spent Total Time Spent: 90 Total Time Spent with Patient: Total time spent is greater than 50% in coordination of care (as documented) at patient's floor/unit and/or counseling patient: Coding Level of Care Code 08413 Initial Inpt Care Lvl 3 Diagnoses GI bleed K92.2 Acute blood loss anemia D62 Smoking greater than 30 pack years F17.210
[2022-11-03] MEDS ORDERED: PNEUMOCOCCAL POLYSACCHARIDES 25 MCG/0.5 ML VIAL/SYR IM ONE (14:50)
[2022-11-03] MEDS ORDERED: INFLUENZA VACCINE HIGH DOSE PF 65+ 0.7 ML SYR IM ONE (14:50)
[2022-11-03] MEDS ORDERED: LACTATED RINGER'S 500 ML IV ONE (14:52)
[2022-11-03 15:24] LABS: Hematocrit (blood only) 26.1 % (34.1-44.9); Hemoglobin 8.8 g/dl (12.0-16.0)
[2022-11-03] MEDS ORDERED: SODIUM CHLORIDE 0.9% 250 ML IV PRN ×2 (15:54→16:57)
[2022-11-03] MEDS: PANTOprazole 40 MG in DEXTROSE 5% 100 ML IV SCH ×2 (15:57→21:23)
[2022-11-03] MEDS ORDERED: LACTATED RINGER'S 1,000 ML IV ONE (16:56)
--- NOTE | 2022-11-03 17:13 | Communication Note ---
Date of Service: November 03, 2022 Hgb drop from 11.6 -> 8.8. Patient made NPO and additional pantoprazole bolus given and started on IV drip. Informed pt with BP 74/33 and HR 108. On review of patient she had a clear liquid tray which I took away from her. Feeling fatigued but otherwise much the same as earlier in the day. No change in cognition or lightheadedness. Her arm size is in between blood pressure cuffs and I am inclined to believe the larger one with her sBP > 90 as she is not lightheaded and has excellent peripheral pulses. Two large bore IVs need to be in place. Blood consent signed. Will repeat H&H now with type and cross but regardless will start transfusion of 1 unit packed RBCs and transfer pt to PCU for ongoing care.
[2022-11-03 17:24] LABS: Hematocrit (blood only) 24.3 % (34.1-44.9); Hemoglobin 8.3 g/dl (12.0-16.0)
[2022-11-03] MEDS ORDERED: PANTOprazole 40 MG in SYRINGE 0 ML IV SCH (21:00)
[2022-11-03 21:54] LABS: Hematocrit (blood only) 24.1 % (34.1-44.9); Hemoglobin 8.2 g/dl (12.0-16.0)
[2022-11-04 00:43] LABS: Hematocrit (blood only) 22.7 % (34.1-44.9); Hemoglobin 7.8 g/dl (12.0-16.0)
[2022-11-04] MEDS: PANTOprazole 40 MG in DEXTROSE 5% 100 ML IV SCH ×5 (02:10→20:42)
[2022-11-04 07:08] LABS: Basophils # (auto) 0.05 K/uL (0-0.2); Basophils % (auto) 0.6 %; Eosinophils # (auto) 0.07 K/uL (0-0.50); Eosinophils % (auto) 0.9 %; Hemoglobin 7.1 g/dl (12.0-16.0); Immature Granulocytes # (auto) 0.04 K/uL (0.00-0.02); Immature Granulocytes % (auto) 0.5 %; Lymphocytes # (auto) 2.01 K/uL (1.2-3.4); Lymphocytes % (auto) 25.3 %; Mean Corpuscular Hemoglobin 30.2 pg (25.0-34.0); Mean Corpuscular Hgb Conc 33.8 g/dL (32.0-36.0); Mean Corpuscular Volume 89.4 fL (80.0-100.0); Mean Platelet Volume 8.9 fL (9.4-12.3); Monocytes # (auto) 0.76 K/uL (0.24-0.82); Monocytes % (auto) 9.5 %; Neutrophils # (auto) 5.03 K/uL (1.4-6.5); Neutrophils % (auto) 63.2 %; Platelet Count 144 K/uL (130-400); RDW Coefficient of Variation 15.9 % (11.5-14.5); RDW Standard Deviation 51.6 fL (36.4-46.3); Red Blood Count 2.35 M/uL (3.93-5.22); White Blood Count 7.96 K/ul (4.8-10.8)
[2022-11-04 07:44] LABS: BUN Creatinine Ratio 24.4 (10-20); Calcium 7.3 mg/dl (8.5-10.1); Creatinine Clr Calc Pharmacy 53.1 ml/min; Est GFR (African American) 89.3 ml/min; Potassium 4.3 mmol/L (3.5-5.1)
[2022-11-04 07:51] LABS: RBC Morphology Unremarkable
[2022-11-04 09:26] LABS: Hematocrit (blood only) 21.1 % (34.1-44.9); Hemoglobin 7.2 g/dl (12.0-16.0)
--- NOTE | 2022-11-04 09:44 | Gastrointestinal Consultation ---
Date of Consultation November 04, 2022 Assessment & Plan (1) Acute GI bleeding: (2) Acute blood loss anemia: Plan Diff dx: PUD vs AVM vs diverticular bleed vs malignancy vs other. 1. Clear liquid diet. 2. Transfuse to maintain Hgb>8. 3. Continue PPI ggt at 8 mg/hr. 4. Golytely bowel prep this evening. 5. NPO except sips with meds after midnight. 6. EGD and colonoscopy by Dr. Stephens tomorrow. 7. Further reccs pending results of testing. Thank you for allowing us to participate in the care of this patient. If you have any questions or concerns, please do not hesitate to contact us. History of Present Illness Reason for Consultation: Rectal bleeding Requesting Physician: Dr. Cardona Attending Physician: Ramesh Liu MD History of Present Illness Patient is a 72 y.o. female with a history of tobacco abuse and daily aspirin use admitted after an abrupt onset of bright red blood per rectum beginning yesterday. The blood is red with dark pieces of stool that fills the toilet bowl. She denies any associated abdominal pain or cramping, n/v or other GI complaints. She further denies any chest pain, shortness of breath, dizziness, syncope or fatigue. +palpitations. H&H on arrival was noted to be 11.6/33.5 and has dropped to 7.2/21.1. She is receiving a unit of PRBCs. No abdominal imaging. No family history of colorectal cancer or IBD. Last colonoscopy was performed by Dr. Stephens in 2013. Surveillance due 2023. Allergies Allergy/AdvReac Type Severity Reaction Status Date / Time No Known Allergies Allergy Verified 07/30/22 13:21 Home Medications Medication Instructions Recorded Confirmed Type acetaminophen 325 mg tablet 650 mg PO Q8H #60 tabs 07/28/22 07/30/22 Rx sennosides 8.6 mg-docusate sodium 1 tab-cap PO DAILY PRN 07/28/22 07/30/22 Rx 50 mg tablet (Senna with Docusate constipation #30 tabs Sodium) tramadol 50 mg tablet 50 mg PO Q4H PRN pain, moderate 07/28/22 07/30/22 Rx #30 tabs aspirin 325 mg tablet 325 mg PO DAILY 07/30/22 07/30/22 History oxycodone-acetaminophen 5 mg-325 1 tab PO Q6H PRN pain #30 tabs 08/11/22 08/11/22 Rx mg tablet (Percocet) Patient History Surgical History No pertinent past surgical history Family History Grandfather Diabetes Father Diabetes Myocardial infarction Sister Hypertension Mother Myocardial infarction Denies family history of Ovarian cancer Prostate cancer Breast cancer Colorectal cancer Social History Smoking Status: Current every day smoker Tobacco Type: Cigarettes Cigarettes Per Day: 1/2 pack a day; Hx Alcohol Use: Yes Alcohol type: wine Hx Substance Use: No Preferred Language: Syrian Communication Ability: Effective Fryer Operator Required: No Beliefs That Will Affect Care: None marital status: Current Living Situation: Alone Feels Safe at Home: Yes Assistive Devices: Cane and Glasses Review of Systems Review of Systems: All systems reviewed & are unremarkable except as noted in HPI & below Physical Exam Constitutional: WD/WN, vitals as above Eyes: EOM intact bilaterally Neck: normal appearance Respiratory: normal respiratory effort, lungs clear to auscultation Cardiovascular: Rate/Rhythm: regular rate and regular rhythm Heart Sounds: no gallop and no murmur Gastrointestinal (Abdomen): normal bowel sounds, soft, nontender, no hepatosplenomegaly Inspection/Auscultation: abdomen not distended Musculoskeletal: Extremities: no cyanosis no lower extremity edema Skin: no rashes, warm and dry Neurologic: moves all extremities Psychiatric: A+Ox3, euthymic affect Results & Data ([facility]) Vital Signs (Past 12 Hours) Vital Signs Temp Pulse Pulse Resp BP BP Pulse Ox 11/04/22 08:00 74 11/04/22 07:01 37.1 C 89 18 90/55 L 95 11/04/22 02:15 37.4 C 90 20 88/56 L 95 11/03/22 23:30 37.3 C 85 18 98/58 L 95 11/03/22 23:26 78 11/03/22 21:55 74 O2 Del Method 11/04/22 08:00 11/04/22 07:01 Room Air 12/20/22 02:15 Room Air 11/03/22 23:30 Room Air 11/03/22 23:26 11/03/22 21:55 Diagnostic Findings Laboratory Results WBC 7.96 K/ul (4.8-10.8) 11/04/22 06:46 RBC 2.35 M/uL (3.93-5.22) L 11/04/22 06:46 Hgb 7.2 g/dl (12.0-16.0) L 11/04/22 08:53 Hct 21.1 % (34.1-44.9) L 11/04/22 08:53 MCV 89.4 fL (80.0-100.0) 11/04/22 06:46 MCH 30.2 pg (25.0-34.0) 11/04/22 06:46 MCHC 33.8 g/dL (32.0-36.0) 11/04/22 06:46 RDW Std Deviation 51.6 fL (36.4-46.3) H 11/04/22 06:46 RDW Coeff of Diane 15.9 % (11.5-14.5) H 11/04/22 06:46 Plt Count 144 K/uL (130-400) 11/04/22 06:46 MPV 8.9 fL (9.4-12.3) L 11/04/22 06:46 Immature Gran % (Auto) 0.5 % 11/04/22 06:46 Neut % (Auto) 63.2 % 11/04/22 06:46 Lymph % (Auto) 25.3 % 11/04/22 06:46 [facility] % (Auto) 9.5 % 11/04/22 06:46 Eos % (Auto) 0.9 % 11/04/22 06:46 Baso % (Auto) 0.6 % 11/04/22 06:46 Neut # (Auto) 5.03 K/uL (1.4-6.5) 11/04/22 06:46 Lymph # (Auto) 2.01 K/uL (1.2-3.4) 11/04/22 06:46 [facility] # (Auto) 0.76 K/uL (0.24-0.82) 11/04/22 06:46 Eos # (Auto) 0.07 K/uL (0-0.50) 11/04/22 06:46 Baso # (Auto) 0.05 K/uL (0-0.2) 11/04/22 06:46 Immature Gran # (Auto) 0.04 K/uL (0.00-0.02) H 11/04/22 06:46 RBC Morphology Unremarkable 11/04/22 06:46 PT 10.4 Seconds (9.0-12.0) 11/03/22 08:51 INR 1.0 (0.9-1.1) 11/03/22 08:51 APTT 24.8 Seconds (21.0-31.0) 11/03/22 08:51 PTT Ratio 0.9 11/03/22 08:51 Sodium 137 mmol/L (136-145) 11/04/22 06:46 Potassium 4.3 mmol/L (3.5-5.1) 11/04/22 06:46 Chloride 108 mmol/L (98-107) H 11/04/22 06:46 Carbon Dioxide 24 mmol/L (21-32) 11/04/22 06:46 Anion Gap 5 (3-11) 11/04/22 06:46 BUN 19 mg/dl (6-23) 11/04/22 06:46 Creatinine 0.78 mg/dl (0.6-1.2) 11/04/22 06:46 Est Cr Clr Drug Dosing 53.1 ml/min 11/04/22 06:46 Est GFR ( Amer) 89.3 ml/min 11/04/22 06:46 Est GFR (Non-Af Amer) 77.0 ml/min 11/04/22 06:46 BUN/Creatinine Ratio 24.4 (10-20) H 11/04/22 06:46 Glucose 96 mg/dl (70-99(Fasting)) 11/04/22 06:46 Calcium 7.3 mg/dl (8.5-10.1) L 11/04/22 06:46 Total Bilirubin 0.5 mg/dl (0.2-1.0) 11/03/22 08:51 AST 11 U/L (13-39) L 11/03/22 08:51 ALT 7 U/L (7-52) 11/03/22 08:51 Alkaline Phosphatase 82 U/L (34-104) 11/03/22 08:51 Total Protein 6.7 gm/dl (6.0-8.3) 11/03/22 08:51 Albumin 3.9 gm/dl (3.4-5.0) 11/03/22 08:51 Globulin 2.8 gm/dl (2.5-4.0) 11/03/22 08:51 Albumin/Globulin Ratio 1.4 (0.9-2) 11/03/22 08:51 POC Stool Occult Blood Positive (Negative) A 11/03/22 08:21 SARS-CoV-2, RNA, NAAT NEGATIVE (NEGATIVE) 11/03/22 09:40 Blood Type B Positive 11/03/22 08:51 Blood Type Recheck B Positive 11/03/22 17:11 Antibody Screen NEGATIVE 11/03/22 08:51 Crossmatch See Detail 11/03/22 08:51 PG Care Time/CCT Total # of Minutes Spent Total Time Spent with Patient: Total time spent is greater than 50% in coordination of care (as documented) at patient's floor/unit and/or counseling patient: Coding Level of Care Code 45252 Initial Inpt Care Lvl 3 Diagnoses Acute GI bleeding K92.2 Acute blood loss anemia D62
[2022-11-04] MEDS ORDERED: IRON SUCROSE 200 MG in 0.9 % SODIUM CHLORIDE 100 ML IV ONE ×2 (11:48→12:00)
[2022-11-04 13:40] LABS: Hematocrit (blood only) 20.1 % (34.1-44.9); Hemoglobin 6.9 g/dl (12.0-16.0)
--- NOTE | 2022-11-04 18:05 | Hospitalist Progress Note ---
Date of Service November 04, 2022 Assessment & Plan (1) GI bleed: Plan: Smoker, aspirin use Unclear if UGI vs. LGI bleed, but possibly upper GI bleed, given patient has been taking aspirin, patient is going for EGD colonoscopy tomorrow, n.p.o. after Pantoprazole 40mg IV BID Trend H&H q8h Consult gastroenterology - previous colonoscopy with Dr Stephens (2) Acute blood loss anemia: Plan: Type and screen sent (3) Smoking greater than 30 pack years: Plan: Encourage cessation Plan VTE Prophylaxis - SCDs Diet - clear liquids, NPO at midnight Disposition - observation status to med/tele Admission and Anticipated Discharge Date Admission Date: November 04, 2022 Subjective Feels better today, had few bloody bowel movements, hemoglobin stable, started on IV iron, going for EGD colonoscopy tomorrow Physical Exam Constitutional: WD/WN, vitals as above Respiratory: normal respiratory effort, lungs clear to auscultation Cardiovascular: RRR, no murmur, no edema Extremities: normal capillary refill Gastrointestinal (Abdomen): normal bowel sounds, soft, nontender, no hepatosplenomegaly Musculoskeletal: no cyanosis or clubbing, extremities motor strength 5/5 Skin: no rashes, warm and dry Neurologic: moves all extremities and awake; not confused Psychiatric: A+Ox3, euthymic affect Results & Data Results & Data ([facility]) Vital Signs (Past 12 Hours) Vital Signs Temp Pulse Pulse Resp BP BP Pulse Ox 11/04/22 15:00 76 11/04/22 15:21 37.2 C 73 17 96/51 L 95 11/04/22 11:12 36.7 C 85 18 90/51 L 95 11/04/22 08:00 74 11/04/22 07:01 37.1 C 89 18 90/55 L 95 O2 Del Method 11/04/22 15:00 11/04/22 15:21 Room Air 11/04/22 11:12 Room Air 11/04/22 08:00 11/04/22 07:01 Room Air PG Care Time/CCT Total # of Minutes Spent Total Time Spent with Patient: Total time spent is greater than 50% in coordination of care (as documented) at patient's floor/unit and/or counseling patient: Coding Level of Care Code 56036 Subseq Hosp Care Lvl 2 Diagnoses GI bleed K92.2 Acute blood loss anemia D62 Smoking greater than 30 pack years F17.210
[2022-11-04] MEDS: LAVAGE SOLUTION 4000ML PO SCH (18:21)
[2022-11-04] MEDS ORDERED: LAVAGE SOLUTION 4000ML PO SCH (18:45)
[2022-11-04] MEDS ORDERED: SODIUM CHLORIDE 0.9% 250 ML IV PRN (20:15)
--- NOTE | 2022-11-04 20:16 | Communication Note ---
Date of Service: November 04, 2022 Received message from RN that patient's most recent Hgb at 12:54 was 6.9 with no f/u H/H ordered. Per review of GI note, recommendation to transfuse for Hgb goal of 8. No transfusion or follow-up H/H ordered. Will transfuse 2 units PRBCs at this time and plan to recheck H/H one hour after transfusion and trend q8h thereafter. Resident Activity Tracking Resident Involvement: Resident Care Provided Care Provided: Adult Hospital Medicine
--- NOTE | 2022-11-04 21:58 | Electrocardiogram Report ---
Test Reason : Blood Pressure : / mmHG Vent. Rate : 099 BPM Atrial Rate : 099 BPM P-R Int : 128 ms QRS Dur : 088 ms QT Int : 336 ms P-R-T Axes : 078 060 031 degrees QTc Int : 431 ms Normal sinus rhythm Possible Left atrial enlargement Left ventricular hypertrophy Nonspecific ST abnormality Abnormal ECG When compared with ECG of 26-DEC-2013 09:06, No significant change was found Confirmed by Bonilla Roberts ([id number]) on 11/04/2022 9:58:23 PM Referred By: REFERRED SELF Confirmed By:Bonilla Roberts
[2022-11-05] MEDS: PANTOprazole 40 MG in DEXTROSE 5% 100 ML IV SCH ×3 (02:14→12:09)
[2022-11-05 04:49] LABS: Hematocrit (blood only) 27.2 % (34.1-44.9); Hemoglobin 9.6 g/dl (12.0-16.0)
--- NOTE | 2022-11-05 09:40 | History & Physical Bridge Note ---
Date of Service November 05, 2022 History & Physical Bridge Note I have examined the patient, reviewed the History & Physical and in the interval since the performance of the History & Physical I have noted the following changes of clinical significance: Patient reports she completed 50% of the bowel preparation. Despite this, reports she is passing liquid with some blood. No abdominal pain. +Nausea but no vomiting. H&H this morning 9.6/27.2. PE: A&Ox3. Lungs CTA bilaterally. RRR. Abdomen soft, nontender. Normal bowel sounds. A/P: Acute blood loss anemia and rectal bleeding. -NPO for now. -Proceed with EGD and colonoscopy by Dr. Stephens today. -Continue PPI ggt at 8 mg/hr. -Further reccs pending results of testing. Supervising Physician Co-Signing Physician Notes Agree with MARIA E Oliver as above Abd: Soft, NT, ND, +BS Continue current therapy and supportive care Proceed with EGD and colonoscopy now
--- NOTE | 2022-11-05 13:01 | Anesthesiology Consultation ---
Date of Service November 05, 2022 Assessment & Plan (1) Encounter for pre-operative examination: Chart Review Chart Review: Acceptable Risk for Surgery, Patient NOT seen in Pre Admission Testing and entry level sales representative initiated Consults Requested none History Surgery Operation Date: 11/05/22 16:00 Proposed Procedures p Colonoscopy EGD Dr. Angelo Stephens, DO Height/Weight Height: 5 ft 2 in Weight: 55.8 kg Allergies Allergy/AdvReac Type Severity Reaction Status Date / Time No Known Allergies Allergy Verified 07/30/22 13:21 Medications Home Medications Medication Instructions Recorded Confirmed Last Taken acetaminophen 325 mg tablet 650 mg PO Q8H #60 tabs 07/28/22 07/30/22 Unknown sennosides 8.6 mg-docusate sodium 1 tab-cap PO DAILY PRN 07/28/22 07/30/22 Unknown 50 mg tablet (Senna with Docusate constipation #30 tabs Sodium) tramadol 50 mg tablet 50 mg PO Q4H PRN pain, moderate 07/28/22 07/30/22 Unknown #30 tabs aspirin 325 mg tablet 325 mg PO DAILY 07/30/22 07/30/22 Unknown oxycodone-acetaminophen 5 mg-325 1 tab PO Q6H PRN pain #30 tabs 08/11/22 08/11/22 Unknown mg tablet (Percocet) Active Medications Generic Name Dose Route Start Last Admin Trade Name Freq PRN Reason Stop Dose Admin Pantoprazole Sodium 40 mg/ 100 mls @ 20 mls/hr 11/03/22 16:00 11/05/22 12:09 Dextrose IV 12/03/22 15:59 8 mg/hr Q5H IVET 20 mls/hr Administration 8 MG/HR Past Medical History Medical History (Updated 11/05/22 @ 13:02 by Nael Ramesh MD) Encounter for pre-operative examination Past Family History Family History Grandfather Diabetes Father Diabetes Myocardial infarction Sister Hypertension Mother Myocardial infarction Denies family history of Ovarian cancer Prostate cancer Breast cancer Colorectal cancer Past Surgical History Surgical History No pertinent past surgical history Social History Smoking Status: Current every day smoker tobacco type: cigarettes Smoking cigarettes per day: 1/2 pack a day Hx Alcohol Use: Yes Alcohol type: wine alcohol intake frequency: 0-2 drinks per day Hx Substance Use: No substance use type: does not use Physical Exam Vital Signs Last Vital Signs Temp 36.7 C 11/05/22 11:37 Pulse 76 11/05/22 11:37 Resp 18 11/05/22 11:37 BP 108/57 L 11/05/22 11:37 Pulse Ox 98 11/05/22 11:37 O2 Del Method 11/05/22 11:37 Testing Laboratory Results 11/05/22 04:40 11/04/22 06:46 PT 10.4 Seconds (9.0-12.0) 11/03/22 08:51 INR 1.0 (0.9-1.1) 11/03/22 08:51 APTT 24.8 Seconds (21.0-31.0) 11/03/22 08:51 Blood Type B Positive 11/03/22 08:51 Antibody Screen NEGATIVE 11/03/22 08:51 Electrocardiogram Date: 11/03/22 Test Reason : Blood Pressure : / mmHG Vent. Rate : 099 BPM Atrial Rate : 099 BPM P-R Int : 128 ms QRS Dur : 088 ms QT Int : 336 ms P-R-T Axes : 078 060 031 degrees QTc Int : 431 ms Normal sinus rhythm Possible Left atrial enlargement Left ventricular hypertrophy Nonspecific ST abnormality Abnormal ECG When compared with ECG of 26-DEC-2013 09:06, No significant change was found Confirmed by Bonilla Roberts ([id number]) on 11/04/2022 9:58:23 PM
[2022-11-05 13:22] LABS: Hematocrit (blood only) 26.8 % (34.1-44.9); Hemoglobin 9.4 g/dl (12.0-16.0)
[2022-11-05] MEDS ORDERED: PROPOFOL IV EMULSION 10 MG/ML 20 ML VIAL IV ONE (14:52)
[2022-11-05] MEDS ORDERED: LIDOCAINE 2% MPF LOCAL 5 ML VIAL INFIL ONE (14:52)
[2022-11-05] MEDS ORDERED: ONDANSETRON INJ 2 MG/ML 2 ML VIAL ONE (14:52)
--- NOTE | 2022-11-05 16:01 | GI REPORT ---
Patient Name: Doreen Castro Procedure Date: 11/05/2022 3:07 PM Date of : 1950 Admit Type: Inpatient Age: 72 Gender: Female Attending MD: Josep Stephens DO, Procedure: Colonoscopy Providers: Josep Stephens DO Referring MD: Ramesh Liu Md Indications: Acute post hemorrhagic anemia Medicines: Monitored Anesthesia Care Complications: No immediate complications. Estimated Blood Loss: Estimated blood loss: none. Procedure: Pre-Anesthesia Assessment: - Prior to the procedure, a History and Physical was performed, and patient medications and allergies were reviewed. The patient's tolerance of previous anesthesia was also reviewed. The risks and benefits of the procedure and the sedation options and risks were discussed with the patient. All questions were answered, and informed consent was obtained. Prior Anticoagulants: The patient has taken no anticoagulant or antiplatelet agents except for aspirin. ASA Grade Assessment: III - A patient with severe systemic disease. After reviewing the risks and benefits, the patient was deemed in satisfactory condition to undergo the procedure. After I obtained informed consent, the scope was passed under direct vision. Throughout the procedure, the patient's blood pressure, pulse, and oxygen saturations were monitored continuously. The Colonoscope was introduced through the anus and advanced to the terminal ileum. The colonoscopy was performed without difficulty. The patient tolerated the procedure well. The quality of the bowel preparation was good. The terminal ileum, the appendiceal orifice and the rectum were photographed. Findings: The perianal and digital rectal examinations were normal. Hematin (altered blood/akiqeo-nkclbj-ubev material) was found in the rectum, in the sigmoid colon and in the descending colon. Multiple small-mouthed diverticula were found in the sigmoid colon. Non-bleeding internal hemorrhoids were found during retroflexion. The hemorrhoids were small. Impression: - Blood in the rectum, in the sigmoid colon and in the descending colon. - Diverticulosis in the sigmoid colon. - Non-bleeding internal hemorrhoids. - No specimens collected. Recommendation: - Resume previous diet. - Continue present medications. - No repeat colonoscopy due to age and the absence of advanced adenomas. - Return to primary care physician as previously scheduled. Josep Stephens DO 11/05/2022 4:00:47 PM This report has been signed electronically. Note Initiated On: 11/05/2022 3:07 PM Number of Addenda: 0 I attest to the content of the Intraoperative Record and orders documented therein, exceptions below {[id number]}
--- NOTE | 2022-11-05 16:04 | GI REPORT ---
Patient Name: Doreen Castro Procedure Date: 11/05/2022 3:08 PM Date of : 1950 Admit Type: Inpatient Age: 72 Gender: Female Attending MD: Josep Stephens DO, Procedure: Upper GI endoscopy Providers: Josep Stephens DO Referring MD: Ramesh Liu Md Indications: Acute post hemorrhagic anemia Medicines: Monitored Anesthesia Care Complications: No immediate complications. Estimated Blood Loss: Estimated blood loss: none. Procedure: Pre-Anesthesia Assessment: - Prior to the procedure, a History and Physical was performed, and patient medications and allergies were reviewed. The patient's tolerance of previous anesthesia was also reviewed. The risks and benefits of the procedure and the sedation options and risks were discussed with the patient. All questions were answered, and informed consent was obtained. Prior Anticoagulants: The patient has taken no anticoagulant or antiplatelet agents except for aspirin. ASA Grade Assessment: III - A patient with severe systemic disease. After reviewing the risks and benefits, the patient was deemed in satisfactory condition to undergo the procedure. After obtaining informed consent, the endoscope was passed under direct vision. Throughout the procedure, the patient's blood pressure, pulse, and oxygen saturations were monitored continuously. The Colonoscope was introduced through the mouth, and advanced to the second part of duodenum. The upper GI endoscopy was accomplished without difficulty. The patient tolerated the procedure well. Findings: The esophagus was normal. Localized mild inflammation characterized by erythema was found in the gastric antrum. Biopsies were taken with a cold forceps for histology. Localized moderately erythematous mucosa without active bleeding and with no stigmata of bleeding was found in the duodenal bulb. Impression: - Normal esophagus. - Gastritis. Biopsied. - Erythematous duodenopathy. Recommendation: - Resume previous diet. - Recommend Protonix 40 mg by mouth each morning 1/2 hour prior to breakfast. - Await pathology results. - Return to primary care physician as previously scheduled. Josep Stephens DO 11/05/2022 4:03:42 PM This report has been signed electronically. Note Initiated On: 11/05/2022 3:08 PM Number of Addenda: 0 I attest to the content of the Intraoperative Record and orders documented therein, exceptions below {[id number]}
--- NOTE | 2022-11-05 16:07 | Anesthesiology Progress Note ---
Date of Service November 05, 2022 Anesthesia Post Procedure Vital Signs Vital Signs: Temp Pulse Pulse Resp BP BP BP 11/05/22 16:04 103 H 20 109/62 11/05/22 15:49 91 H 16 85/52 L 11/05/22 15:00 85 11/05/22 14:43 36.6 C 67 16 127/66 11/05/22 11:37 36.7 C 76 18 108/57 L 11/05/22 08:01 78 11/05/22 07:59 36.6 C 84 20 114/59 L 11/05/22 03:45 36.7 C 78 18 115/58 L 11/05/22 03:17 36.7 C 71 18 105/50 L 11/05/22 02:17 36.7 C 79 18 95/52 L 11/05/22 02:09 36.7 C 83 18 97/45 L 11/05/22 01:17 36.8 C 66 18 95/51 L 11/05/22 00:47 36.8 C 67 18 95/49 L 11/05/22 00:32 36.8 C 73 18 95/53 L 11/05/22 00:13 37 C 81 18 110/66 11/04/22 23:56 36.8 C 75 18 112/58 L 11/04/22 23:02 36.8 C 88 18 96/48 L 11/04/22 22:02 36.4 C L 66 18 117/68 11/04/22 21:32 36.8 C 65 18 96/57 L 11/04/22 21:17 37.2 C 80 18 89/45 L 11/04/22 21:00 36.8 C 66 18 98/50 L 11/04/22 19:13 36.7 C 81 18 99/62 L Pulse Ox O2 Del Method 11/05/22 16:04 99 Room Air 11/05/22 15:49 99 Room Air 11/05/22 15:00 11/05/22 14:43 96 Room Air 11/05/22 11:37 98 Room Air 11/05/22 08:01 11/05/22 07:59 93 Room Air 11/05/22 03:45 98 11/05/22 03:17 98 11/05/22 02:17 96 11/05/22 02:09 96 Room Air 11/05/22 01:17 96 11/05/22 00:47 98 11/05/22 00:32 98 11/05/22 00:13 94 11/04/22 23:56 96 11/04/22 23:02 96 11/04/22 22:02 96 11/04/22 21:32 97 11/04/22 21:17 96 11/04/22 21:00 97 11/04/22 19:13 97 Room Air Transfer of Care Handoff Completed per policy Notes Mental Status: alert / awake / arousable and participated in evaluation Patient Amnestic to Procedure: Yes Nausea / Vomiting: adequately controlled Pain: adequately controlled Airway Patency, RR, SpO2: stable & adequate BP & HR: stable & adequate Hydration State: stable & adequate Anesthetic Complications: no major complications apparent and Pt Satisfied with anesthetic care
--- NOTE | 2022-11-05 20:25 | Discharge Summary ---
Date of Service November 05, 2022 Admission HPI Per Admitting Provider Doreen Castro is a 72 year old female who presents to the ER with dark red blood in stool mixed with black stool. She has never had this problem before but has been taking aspirin 325mg PO BID for her right knee pain recently (occasionally more than this) as it appears to be the only thing that works. No abdominal pain, nausea or vomiting. She woke up this morning with the black stool and dark red blood. She reports having a colonoscopy 8 years ago which was normal by Dr Stephens. Initial hemoglobin in the ER 11.6. She was given pantoprazole 40mg IV and on discussion by the ER provider with GI recommended admission under medicine at this time. Principal Diagnosis GI bleed most likely upper GI bleed due to gastritis and using aspirin Severe anemia due to GI bleed, required 1 unit of packed RBC Discharge Exam Constitutional WD/WN, vitals as above Respiratory normal respiratory effort, lungs clear to auscultation Cardiovascular RRR, no murmur, no edema Extremities: normal capillary refill Gastrointestinal (Abdomen) normal bowel sounds, soft, nontender, no hepatosplenomegaly Musculoskeletal no cyanosis or clubbing, extremities motor strength 5/5 Skin no rashes, warm and dry Neurologic moves all extremities and awake; not confused Psychiatric A+Ox3, euthymic affect Discharge Data Allergies Allergy/AdvReac Type Severity Reaction Status Date / Time No Known Allergies Allergy Verified 07/30/22 13:21 Consultations 11/03/22 11:14 ED Decision to Admit Stat 11/03/22 12:30 Consult Gastroenterology Routine Procedures Performed Operation Date: 11/05/22 16:00 Actual Procedures p EGD Biopsy Cytology - Josep La Case, DO s Colonoscopy - Josep La Case, DO Hospital Course (1) GI bleed: Patient has been using high-dose of aspirin for knee pain, patient GI bleed was painless, colonoscopy was unremarkable EGD showed evidence of gastritis, initially patient was started on PPI intravenously twice daily, as per GI recommendation patient was discharged on PPI and a daily basis and to follow-up with GI in 1 week for (2) Acute blood loss anemia: Presented with hemoglobin 6.97.2, received 1 unit of packed RBC, hemoglobin prior to discharge was 9.4 (3) Smoking greater than 30 pack years: Encourage cessation Plan VTE Prophylaxis - SCDs Diet - clear liquids, NPO at midnight Disposition - observation status to med/tele Total Time Total Time Spent Total Time Spent (In Minutes): 45 Discharge Plan Discharge Items Patient Disposition: Home - Self-Care Reason For Visit: GI BLEEDING Discharge Diagnosis: Gastrointestinal bleeding Activity: Resume your previous activity Lifting: Gradually increase as tolerated Bathing: No limitations Sexual Activity: When tolerated Exercise/Sports: None and Gradually increase as tolerated Driving/Machine Use: No limitations Non-emergency contact: Primary Care Provider and Drafting Supervisor Call non-emergency contact if: you have any medication questions and your symptoms worsen Follow-up/Referrals: Vamsi Garcia MD [Physician] - Regan Villanueva, [Primary Care Provider] - Diet: Heart Healthy Addtl Attending Provider Instructions: please follow with your [employer] in one month Pending Studies at Discharge: No Stand-Alone Forms: My [employer], Smoking Cessation Medications and DC Order Prescriptions: New dexlansoprazole 30 mg capsule,biphase delayed releas 30 mg PO DAILY 28 Days Qty: 28 0RF Nano-Sequels (iron-vit c) 200 mg (65 mg iron)-25 mg tablet extended release 1 tab PO DAILY Qty: 90 0RF Continued oxycodone-acetaminophen [Percocet] 5-325 mg tablet 1 tab PO Q6H PRN (Reason: pain) Qty: 30 0RF acetaminophen 325 mg Tablet 650 mg PO Q8H Qty: 60 0RF tramadol 50 mg Tablet 50 mg PO Q4H PRN (Reason: pain, moderate) Qty: 30 0RF sennosides-docusate sodium [Senna with Docusate Sodium] 8.6-50 mg tablet 1 tab-cap PO DAILY PRN (Reason: constipation) Qty: 30 0RF Discontinued aspirin 325 mg tablet 325 mg PO DAILY Discharge Orders: Discharge Order (Routine); Ordered 11/05/22 Ordered By: Ramesh Liu Admission Data Admit Date/Time: 11/04/22 11:13 Attending Provider: Ramesh Liu Admit Provider: Felipe Cardona Primary Care Provider: Regan Villanueva Other Providers: Felipe Cardona ; Vamsi Garcia Other Interventions: Discharge Summary Assessment (RN) Last Done: 11/05/22 16:54 Coding Level of Care Code D/C DAY MANAGEMENT >30 MINS Diagnoses GI bleed K92.2 Acute blood loss anemia D62 Smoking greater than 30 pack years F17.210
== END 2022-11-05 17:48 | disposition home or self-care (01) | DRG 813 ==
LOC: ED 08:00 → EDINP 08:00 → SUATTDRO 11:14 → 2W 13:23 → 2S 19:47

== ENCOUNTER 2024-10-23 09:00 | Inpatient (IN) ==
[2024-10-23] MEDS: METOPROLOL TARTRATE 1 MG/ML VIAL IV STA ×2 (09:14→17:24)
--- NOTE | 2024-10-23 09:19 | Emergency Department Note ---
Impression & Plan ISLAS (dyspnea on exertion), Smoking greater than 30 pack years, Fall, Pulmonary edema, Atrial paroxysmal tachycardia ED Provider Note Provider: Ean Cruz MD CHIEF COMPLAINT: Shortness of breath HISTORY OF PRESENT ILLNESS: Patient is a 74-year-old female past medical history of GI bleed presenting here today from home. Reports prickly today but some yesterday has been feeling more short of breath with exertion. Denies any chest pain. Did miss 2 steps about 3 weeks ago walking outside and fell. Had some bruising to her left arm and chest but did not come to the hospital for that. States it was not a big deal. Patient relates however the last several days he is just been more short of breath. Some around has had some cough and cold symptoms but she denies fever or new significant cough. Reports some chronic sinus drainage. Denies leg swelling. Denies any GI upset, melena, vomiting, diarrhea, or abdominal pain. Patient is a smoker. Not normally on oxygen denies a history of COPD as far as she knows. States she is hungry and did not have her morning cup of coffee yet. Per EMS noted to have frequent periods of what appear to be rapid A-fib. No recent travel. No cardiac history besides a valve issue reported. PAST MEDICAL HISTORY: As noted above MEDICATIONS: Reviewed home medications SOCIAL HISTORY: Smoker, lives at home with her dog PHYSICAL EXAM: GENERAL: alert and oriented in no acute distress on stretcher Head: normocephalic and atraumatic EYES: No injection, discharge or icterus. EOMI. NECK: Trachea midline. ENT: Mucous membranes pink and moist. LUNGS: Airway patent. No retractions. Breath sounds clear with good air entry bilaterally. HEART: Irregular occasionally tachycardic rate and rhythm. ABDOMEN: Soft and non-tender, without guarding or rebound. Stable pelvis SKIN: Acyanotic, warm, dry, with some scattered contusion extensively over the left upper arm and left chest. EXTREMITIES: Without swelling, tenderness or deformity NEUROLOGICAL: No focal deficits. No aphasia. No facial droop or slurred speech. Ambulatory. EKG: Variable but about 145 bpm of sinus rhythm followed by periods of rapid atrial fibrillation/atrial tachycardia. Inferior lateral T wave changes and questionable ST depression. No acute ST segment elevation noted. QTc 357. CONTINUOUS CARDIAC MONITORING: was ordered and showed a heart rate of 120s to 200s bpm in atrial tachycardia with periods of sinus tachycardia Patient's laboratory studies and imaging reviewed. Differential includes Reactive airway disease, pneumonia, pneumothorax, COPD, CHF, infections, cardiac ischemia, arrhythmia, heart valvular issues, pulmonary embolism, musculoskeletal, gastrointestinal, traumatic injury, as well as other pathologies. IMPRESSION/MEDICAL DECISION MAKING: Patient in no distress. Oxygen level in the high 80s. Is a longtime smoker. Not significant short of breath at rest but predict with exertion. Denies any chest pain. Did have a recent fall several weeks ago with extensive contusions of the left arm and upper chest. Telemetry and EKG do catch.'s what appear to be rapid A-fib/atrial tachycardia that then spontaneously and paroxysmally flow [id number] to a sinus tachycardia. No significant swelling of the lower extremities and no bilateral calf tenderness. Given a dose of IV metoprolol to see if this will help control these periods of rapid A-fib. TSH and electrolytes sent in addition to basic labs. Given the recent fall will obtain CT imaging of the chest as well as traumatic injury to the head, neck, and abdomen pelvis to exclude an occult bleed or other traumatic injury. Will also attempt to exclude PE with this. Patient's borderline oxygen likely with her chronic smoking exacerbated by her tachycardia periods. 1 view chest x-ray per my interpretation with evidence of what appears to be some pulmonary edema particularly in the lower dick without pneumothorax or free air. Some cardiomegaly noted. Radiology agrees concerning for pulmonary edema and cardiomegaly. Blood work here without anemia. Nonspecific leukocytosis 11.1. No severe electrolyte abnormality signs of renal dysfunction. Troponin just slightly high at 29. TSH slightly off of 5.6 but not severely so. Respiratory viral panel pending. Given the fall again CT causey scan contained within angiogram of the chest to exclude PE and further evaluate for any obvious parenchymal issue. CT with evidence of some fluid overload and no conclusive evidence of PE. No significant concerning traumatic injuries are noted on radiology reports reviewed. Heart rate still continues to be very variable/labile sometimes in the 70s and then into the high 170s. Discussed with the patient that given her periods of rapid A-fib/atrial tachycardia would recommend that we observe her especially with the mild new oxygen requirement she needs further cardiac workup here at the hospital. Patient and sister updated at bedside and agreeable with plan. Hospitalist contacted. Will defer any anticoagulation given her recent fall. DIAGNOSIS: Paroxysmal A-fib with RVR, dyspnea on exertion, smoker DISPOSITION: Hospitalist will evaluate Patient was agreeable with this plan. Critical Care I have personally spent 33 minutes of critical care time in the direct management of this patient. This includes bedside care, interpretation of diagnostic studies, and testing, discussion with consultants, patient, and family members, and other required patient management activities. These 33 minutes is in excess of all separately billable procedures. Past Med/Surg History Problem List (Updated 10/23/24 @ 16:31 by Ean Cruz M.D.) Atrial paroxysmal tachycardia (Acute) Severe mitral regurgitation Moderate pulmonary hypertension PSVT (paroxysmal supraventricular tachycardia) Tachycardia CHF (congestive heart failure) Tachy-presley syndrome Elevated troponin COPD (chronic obstructive pulmonary disease) Hypoxia Pulmonary edema (Acute) ISLAS (dyspnea on exertion) (Acute) History of tibial fracture (07/26/22) Fracture of proximal end of right tibia from a fall Arthritis Anxiety and depression Anemia (Acute) Tobacco abuse (Acute) Acute GI bleeding (Acute) Encounter for pre-operative examination Acute blood loss anemia GI bleed Smoking greater than 30 pack years (Acute) Abrasion of right arm (Acute) Effusion of right knee joint (Acute) Fall (Acute) Surgical History No pertinent past surgical history Family History Grandfather Diabetes Father Diabetes Myocardial infarction Sister Hypertension Mother Myocardial infarction Denies family history of Ovarian cancer Prostate cancer Breast cancer Colorectal cancer Social History Smoking Status: Current every day smoker Tobacco Type: Cigarettes Cigarettes Per Day: 1/2 pack a day; Hx Alcohol Use: Yes Alcohol type: wine Hx Substance Use: No Preferred Language: Thai Communication Ability: Effective Import/Export Clerk Required: No Beliefs That Will Affect Care: None marital status: Current Living Situation: Alone Feels Safe at Home: Yes Assistive Devices: Brace/Splint/Immobilizer, Cane and Wheelchair Allergies Allergies Allergy/AdvReac Type Severity Reaction Status Date / Time No Known Allergies Allergy Verified 07/30/22 13:21 Home Meds Home Medications Medication Instructions Recorded Confirmed Calcium + D 1 tab PO DAILY 10/23/24 10/23/24 acetaminophen 325 mg tablet 650 mg PO Q8H PRN Pain 10/23/24 10/23/24 multivitamin 1 tab PO DAILY 10/23/24 10/23/24 Results & Data (ED) Vital Signs Vital Signs - 24 hr 10/23/24 09:13 10/23/24 09:13 10/23/24 09:13 Temperature 36.7 C 36.7 C Temperature Source Oral Oral Pulse Rate 196 H Pulse Rate [Apical] Pulse Rhythm Irregular Respiratory Rate 17 17 Respiratory Effort / Characteristics Non-Labored Non-Labored Respiratory Depth Normal Normal Blood Pressure 155/99 H Blood Pressure [Right Arm] Blood Pressure Mean 117 Blood Pressure Mean [Right Arm] Blood Pressure Position Lying Pulse Oximetry 90 90 90 Oxygen Delivery Method Room Air Room Air Room Air Oxygen Flow Rate Sepsis Recent Fever Within 48 Hours No Sepsis New/Unexplained Change in Mental Status No Sepsis Action Taken by Nursing No Action Required 10/23/24 09:13 10/23/24 09:14 10/23/24 09:20 Temperature Temperature Source Pulse Rate 152 H Pulse Rate [Apical] Pulse Rhythm Respiratory Rate Respiratory Effort / Characteristics Respiratory Depth Blood Pressure 155/99 H Blood Pressure [Right Arm] Blood Pressure Mean Blood Pressure Mean [Right Arm] Blood Pressure Position Pulse Oximetry 90 85 L Oxygen Delivery Method Room Air Room Air Oxygen Flow Rate Sepsis Recent Fever Within 48 Hours Sepsis New/Unexplained Change in Mental Status Sepsis Action Taken by Nursing 10/23/24 09:20 10/23/24 09:30 10/23/24 09:36 Temperature Temperature Source Pulse Rate 187 H 108 H Pulse Rate [Apical] Pulse Rhythm Respiratory Rate Respiratory Effort / Characteristics Respiratory Depth Blood Pressure 125/83 Blood Pressure [Right Arm] Blood Pressure Mean Blood Pressure Mean [Right Arm] Blood Pressure Position Pulse Oximetry 91 Oxygen Delivery Method Nasal Cannula Oxygen Flow Rate 2 Sepsis Recent Fever Within 48 Hours Sepsis New/Unexplained Change in Mental Status Sepsis Action Taken by Nursing 10/23/24 11:01 Temperature Temperature Source Pulse Rate Pulse Rate [Apical] 123 H Pulse Rhythm Respiratory Rate 20 Respiratory Effort / Characteristics Non-Labored Respiratory Depth Normal Blood Pressure Blood Pressure [Right Arm] 130/79 Blood Pressure Mean Blood Pressure Mean [Right Arm] 96 Blood Pressure Position Pulse Oximetry 100 Oxygen Delivery Method Nasal Cannula Oxygen Flow Rate 2 Sepsis Recent Fever Within 48 Hours Sepsis New/Unexplained Change in Mental Status Sepsis Action Taken by Nursing Laboratory Data 10/23/24 09:11 10/23/24 09:11 Lab Results 10/23/24 10/23/24 10/23/24 Range/Units 09:11 09:27 10:52 WBC 11.12 H (4.8-10.8) K/ul RBC 4.39 (4.20-5.40) M/uL Hgb 14.3 (12.0-16.0) g/dl Hct 42.7 (37.0-47.0) % MCV 97.3 (80.0-100.0) fL MCH 32.6 (25.0-34.0) pg MCHC 33.5 (32.0-36.0) g/dL RDW Std Deviation 45.3 (36.4-46.3) fL RDW Coeff of Diane 12.6 (11.5-14.5) % Plt Count 326 (130-400) K/uL MPV 9.4 (9.4-12.4) fL Immature Gran % (Auto) 0.4 % Neut % (Auto) 78.7 % Lymph % (Auto) 10.9 % Kent % (Auto) 8.5 % Eos % (Auto) 0.8 % Baso % (Auto) 0.7 % Neut # (Auto) 8.74 H (1.40-6.50) K/uL Lymph # (Auto) 1.21 (1.20-3.40) K/uL Kent # (Auto) 0.95 H (0.11-0.59) K/uL Eos # (Auto) 0.09 (0.00-0.50) K/uL Baso # (Auto) 0.08 (0.00-0.20) K/uL Immature Gran # (Auto) 0.05 (0.01-0.20) K/uL PT 10.9 (9.0-12.0) Seconds INR 1.0 (0.9-1.1) APTT 25 (21-31) Seconds PTT Ratio 0.9 Sodium 139 (136-145) mmol/L Potassium 4.2 (3.5-5.1) mmol/L Chloride 105 (98-107) mmol/L Carbon Dioxide 27 (21-32) mmol/L Anion Gap 7 (3-11) BUN 16 (6-23) mg/dl Creatinine 0.77 (0.6-1.2) mg/dl Est Cr Clr Drug Dosing 54.6 ml/min eGFR 81.91 BUN/Creatinine Ratio 20.8 H (10-20) Glucose 106 H (70-99(Fasting)) mg/dl Calcium 9.2 (8.6-10.3) mg/dl Magnesium 2.0 (1.7-2.4) mg/dl Total Bilirubin 1.0 (0.2-1.0) mg/dl AST 20 (13-39) U/L ALT 22 (7-52) U/L Alkaline Phosphatase 115 H (34-104) U/L Troponin I High Sens 29.5 H 32.8 H (0-14) pg/ml B-Natriuretic Peptide (0-100) pg/ml Total Protein 7.0 (6.0-8.3) gm/dl Albumin 3.9 (3.4-5.0) gm/dl Globulin 3.1 (2.5-4.0) gm/dl Albumin/Globulin Ratio 1.3 (0.9-2) TSH 5.677 H (0.300-4.500) uIu/ml Free T4 0.85 (0.61-1.60) ng/dl Adenovirus (PCR) Not Detected (NotDetected) B. pertussis DNA (PCR) Not Detected (NotDetected) B.parapertussis DNA PCR Not Detected (NotDetected) C. pneumoniae DNA (PCR) Not Detected (NotDetected) Coronavirus OC43 (PCR) Not Detected (NotDetected) Coronavirus HKU1 (PCR) Not Detected (NotDetected) Coronavirus 229E (PCR) Not Detected (NotDetected) SARS-CoV-2 (PCR) Not Detected (NotDetected) Coronavirus NL63 (PCR) Not Detected (NotDetected) Human Metapneumovir PCR Not Detected (NotDetected) Influenza Type A (PCR) Not Detected (NotDetected) Influenza Type B (PCR) Not Detected (NotDetected) M. pneumoniae (PCR) Not Detected (NotDetected) Parainfluenza 1 (PCR) Not Detected (NotDetected) Parainfluenza 2 (PCR) Not Detected (NotDetected) Parainfluenza 3 (PCR) Not Detected (NotDetected) Parainfluenza 4 (PCR) Not Detected (NotDetected) RSV (PCR) Not Detected (NotDetected) Entero/Rhino (PCR) Not Detected (NotDetected) 10/23/24 Range/Units 12:27 WBC (4.8-10.8) K/ul RBC (4.20-5.40) M/uL Hgb (12.0-16.0) g/dl Hct (37.0-47.0) % MCV (80.0-100.0) fL MCH (25.0-34.0) pg MCHC (32.0-36.0) g/dL RDW Std Deviation (36.4-46.3) fL RDW Coeff of Diane (11.5-14.5) % Plt Count (130-400) K/uL MPV (9.4-12.4) fL Immature Gran % (Auto) % Neut % (Auto) % Lymph % (Auto) % Kent % (Auto) % Eos % (Auto) % Baso % (Auto) % Neut # (Auto) (1.40-6.50) K/uL Lymph # (Auto) (1.20-3.40) K/uL Kent # (Auto) (0.11-0.59) K/uL Eos # (Auto) (0.00-0.50) K/uL Baso # (Auto) (0.00-0.20) K/uL Immature Gran # (Auto) (0.01-0.20) K/uL PT (9.0-12.0) Seconds INR (0.9-1.1) APTT (21-31) Seconds PTT Ratio Sodium (136-145) mmol/L Potassium (3.5-5.1) mmol/L Chloride (98-107) mmol/L Carbon Dioxide (21-32) mmol/L Anion Gap (3-11) BUN (6-23) mg/dl Creatinine (0.6-1.2) mg/dl Est Cr Clr Drug Dosing ml/min eGFR BUN/Creatinine Ratio (10-20) Glucose (70-99(Fasting)) mg/dl Calcium (8.6-10.3) mg/dl Magnesium (1.7-2.4) mg/dl Total Bilirubin (0.2-1.0) mg/dl AST (13-39) U/L ALT (7-52) U/L Alkaline Phosphatase (34-104) U/L Troponin I High Sens (0-14) pg/ml B-Natriuretic Peptide 1624 H (0-100) pg/ml Total Protein (6.0-8.3) gm/dl Albumin (3.4-5.0) gm/dl Globulin (2.5-4.0) gm/dl Albumin/Globulin Ratio (0.9-2) TSH (0.300-4.500) uIu/ml Free T4 (0.61-1.60) ng/dl Adenovirus (PCR) (NotDetected) B. pertussis DNA (PCR) (NotDetected) B.parapertussis DNA PCR (NotDetected) C. pneumoniae DNA (PCR) (NotDetected) Coronavirus OC43 (PCR) (NotDetected) Coronavirus HKU1 (PCR) (NotDetected) Coronavirus 229E (PCR) (NotDetected) SARS-CoV-2 (PCR) (NotDetected) Coronavirus NL63 (PCR) (NotDetected) Human Metapneumovir PCR (NotDetected) Influenza Type A (PCR) (NotDetected) Influenza Type B (PCR) (NotDetected) M. pneumoniae (PCR) (NotDetected) Parainfluenza 1 (PCR) (NotDetected) Parainfluenza 2 (PCR) (NotDetected) Parainfluenza 3 (PCR) (NotDetected) Parainfluenza 4 (PCR) (NotDetected) RSV (PCR) (NotDetected) Entero/Rhino (PCR) (NotDetected) Administered Medications Discontinued Medications Furosemide (Furosemide Inj 20 Mg/2 Ml Vial) 20 mg IV ONE ONE Stop: 10/23/24 12:15 Last Admin: 10/23/24 12:27 Dose: 20 mg Documented By: KEN Ioversol (Optiray 320 125ml) 112 ml IV ONCE ONE Stop: 10/23/24 10:21 Last Admin: 10/23/24 10:20 Dose: 112 ml Documented By: SAMMIE Metoprolol Tartrate (Metoprolol Tartrate 1 Mg/Ml Vial) 5 mg IV NOW STA Stop: 10/23/24 09:11 Last Admin: 10/23/24 09:14 Dose: 5 mg Documented By: MOISES Imaging Data Radiologist's Impression: Chest X-Ray 10/23/24 09:05 XR chest 1V portable HISTORY: 74 years-old Female Dyspnea, recent fall COMPARISON: 12/26/2023 TECHNIQUE: AP view of the chest FINDINGS: Heart is normal in size. Atherosclerosis of the aorta. No pneumothorax. Layering pleural effusions with bibasilar consolidation. Pulmonary vascular congestion with interstitial coarsening. Degenerative changes of the shoulders and spine. IMPRESSION: 1. Cardiomegaly with pulmonary edema. 2. Layering pleural effusions with bibasilar consolidation. ACT 112: Negative or not required by law. The above report was generated using voice recognition software. It may contain grammatical, syntax or spelling errors. Electronically signed by: Niall Latham M.D. 10/23/2024 10:03 AM Abdomen/Pelvis CT 10/23/24 09:41 CT angio chest PE protocol, CT abd pelvis IV con only HISTORY: 74 years-old Female with PE, ISLAS, fall L chest contusions, new Afib. Acute left-sided chest pain status post fall TECHNIQUE: Multiple CTA images of the chest were obtained after the intravenous administration of 112 ml Optiray. Coronal and sagittal MIPS were obtained from the axial data set and were submitted for review. All measurements were obtained according to NASCET criteria. CT abdomen and pelvis with IV contrast only also obtained. A dose lowering technique was utilized adhering to the principles of ALARA. COMPARISON: None. FINDINGS: CTA: Moderate cardiomegaly without pericardial effusion. Extensive coronary artery calcifications. The thoracic aorta was not well evaluated secondary to contrast bolus timing. There is atherosclerosis without aneurysm or dissection. Dilation of the main pulmonary artery at 3.1 cm. No central pulmonary emboli are identified. The segmental and subsegmental branches are suboptimally evaluated secondary to contrast bolus timing. Well-defined filling defect/mixing artifact noted within segmental and subsegmental branches of the lung bases. CT CHEST: Unremarkable thyroid. Nonspecific borderline-enlarged mediastinal and hilar lymph nodes measure up to approximately 1.3 cm within the right hilum and 1.3 cm in the subcarinal distribution. Small to moderate pleural effusions. Intralobular septal thickening. Moderate to severe pulmonary emphysema. Dependent bibasilar predominant ground glass densities suggest atelectasis. No suspicious pulmonary nodules or masses identified. Mild nonspecific left supraclavicular stranding may be on a posttraumatic basis with subcentimeter adjacent lymph nodes. Degenerative changes of the shoulders and spine. Healing subacute nondisplaced fracture of the lateral left fourth, fifth and sixth and 10th ribs and anterior left seventh and eighth ribs. No acute fracture is identified. CT ABDOMEN/PELVIS: There is no pneumatosis or pneumoperitoneum. Unremarkable spleen and adrenal glands. Moderately atrophic pancreas with 7 mm cystic focus of the pancreatic tail suggestive of a probable IPMN. Unremarkable gallbladder. Heterogeneity of the liver which is mildly enlarged. Unremarkable kidneys without hydronephrosis. Subcentimeter probable cyst of the superior pole left kidney. No hydronephrosis. Partial distention of the urinary bladder with wall thickening. There is atherosclerosis of the aorta without aneurysm or dissection. No lymphadenopathy. Mild wall thickening of the distal esophagus. Trace free fluid within the pelvis. Areas of wall thickening and partial distention noted throughout the large bowel. Noninflamed appendix. Small subcutaneous contusion lateral to the left hip. No acute fracture identified. Severe multilevel degenerative changes of the lumbar spine with scoliosis. Chronic appearing compression deformity of the L1 vertebral body. IMPRESSION: 1. Probable mixing artifact noted within segmental and subsegmental branches of the basilar pulmonary arteries. Tiny pulmonary emboli considered much less likely. As a precautionary measure, lower extremity Doppler recommended. 2. Healing subacute nondisplaced left-sided rib fractures. No acute rib fracture or pneumothorax identified. 3. Cardiomegaly with pulmonary edema and [id number] pleural effusions with bibasilar atelectasis. 4. Pulmonary arterial hypertension. 5. No acute posttraumatic intra-abdominal or intrapelvic abnormality. 6. Small subcutaneous contusion lateral to the left hip. 7. Incidental findings as above. ACT 112: Negative or not required by law. The above report was generated using voice recognition software. It may contain grammatical, syntax or spelling errors. Electronically signed by: Niall Latham M.D. 10/23/2024 11:[address] 10/23/24 09:41 CT cervical spine wo con CT DOSE: 2248.01 mGy.cm CLINICAL HISTORY: 74 years-old Female with recent fall. Acute neck pain status post fall COMPARISON: Head CT of same TECHNIQUE: Multiple axial CT images of the cervical spine were obtained without contrast. A dose lowering technique was utilized adhering to the principles of ALARA. FINDINGS: Demineralized appearance of the bones. Moderate disc space narrowing at C5-C6 and C6-C7 with moderate spondylitic spurring. Multilevel facet arthrosis which is moderate to severe. Grade 1 anterolisthesis C4 on C5 is likely secondary to the chronic facet disease. The cervical soft tissues appear unremarkable. Layering pleural effusions. Emphysema with interlobular septal thickening. Nonspecific stranding noted within the left supraclavicular tissues with subcentimeter lymph nodes, better seen on the same day chest CT. Left mandibular molar periapical cyst formation with dental caries. IMPRESSION: 1. No acute cervical spine fracture or subluxation. 2. Please refer to the same day CTA chest for additional findings. ACT 112: Negative or not required by law. The above report was generated using voice recognition software. It may contain grammatical, syntax or spelling errors. Electronically signed by: Niall Latham M.D. 10/23/2024 11:01 AM Chest CTA 10/23/24 09:41 CT angio chest PE protocol, CT abd pelvis IV con only HISTORY: 74 years-old Female with PE, ISLAS, fall L chest contusions, new Afib. Acute left-sided chest pain status post fall TECHNIQUE: Multiple CTA images of the chest were obtained after the intravenous administration of 112 ml Optiray. Coronal and sagittal MIPS were obtained from the axial data set and were submitted for review. All measurements were obtained according to NASCET criteria. CT abdomen and pelvis with IV contrast only also obtained. A dose lowering technique was utilized adhering to the principles of ALARA. COMPARISON: None. FINDINGS: CTA: Moderate cardiomegaly without pericardial effusion. Extensive coronary artery calcifications. The thoracic aorta was not well evaluated secondary to contrast bolus timing. There is atherosclerosis without aneurysm or dissection. Dilation of the main pulmonary artery at 3.1 cm. No central pulmonary emboli are identified. The segmental and subsegmental branches are suboptimally evaluated secondary to contrast bolus timing. Well-defined filling defect/mixing artifact noted within segmental and subsegmental branches of the lung bases. CT CHEST: Unremarkable thyroid. Nonspecific borderline-enlarged mediastinal and hilar lymph nodes measure up to approximately 1.3 cm within the right hilum and 1.3 cm in the subcarinal distribution. Small to moderate pleural effusions. Intralobular septal thickening. Moderate to severe pulmonary emphysema. Dependent bibasilar predominant ground glass densities suggest atelectasis. No suspicious pulmonary nodules or masses identified. Mild nonspecific left supraclavicular stranding may be on a posttraumatic basis with subcentimeter adjacent lymph nodes. Degenerative changes of the shoulders and spine. Healing subacute nondisplaced fracture of the lateral left fourth, fifth and sixth and 10th ribs and anterior left seventh and eighth ribs. No acute fracture is identified. CT ABDOMEN/PELVIS: There is no pneumatosis or pneumoperitoneum. Unremarkable spleen and adrenal glands. Moderately atrophic pancreas with 7 mm cystic focus of the pancreatic tail suggestive of a probable IPMN. Unremarkable gallbladder. Heterogeneity of the liver which is mildly enlarged. Unremarkable kidneys without hydronephrosis. Subcentimeter probable cyst of the superior pole left kidney. No hydronephrosis. Partial distention of the urinary bladder with wall thickening. There is atherosclerosis of the aorta without aneurysm or dissection. No lymphadenopathy. Mild wall thickening of the distal esophagus. Trace free fluid within the pelvis. Areas of wall thickening and partial distention noted throughout the large bowel. Noninflamed appendix. Small subcutaneous contusion lateral to the left hip. No acute fracture identified. Severe multilevel degenerative changes of the lumbar spine with scoliosis. Chronic appearing compression deformity of the L1 vertebral body. IMPRESSION: 1. Probable mixing artifact noted within segmental and subsegmental branches of the basilar pulmonary arteries. Tiny pulmonary emboli considered much less likely. As a precautionary measure, lower extremity Doppler recommended. 2. Healing subacute nondisplaced left-sided rib fractures. No acute rib fracture or pneumothorax identified. 3. Cardiomegaly with pulmonary edema and [id number] pleural effusions with bibasilar atelectasis. 4. Pulmonary arterial hypertension. 5. No acute posttraumatic intra-abdominal or intrapelvic abnormality. 6. Small subcutaneous contusion lateral to the left hip. 7. Incidental findings as above. ACT 112: Negative or not required by law. The above report was generated using voice recognition software. It may contain grammatical, syntax or spelling errors. Electronically signed by: Niall Latham M.D. 10/23/2024 11:[address] 10/23/24 09:41 CT head/brain wo con CLINICAL HISTORY: 74 years-old Female with recent fall. Acute head trauma status post fall TECHNIQUE: Multiple axial CT images of the head were obtained without contrast. A dose lowering technique was utilized adhering to the principles of ALARA. COMPARISON: None. FINDINGS: No acute intracranial hemorrhage, midline shift, intracranial mass, hydrocephalus, territorial ischemia or abnormal extra-axial collection. Calcifications of the falx cerebri. Involutional changes with chronic microvascular ischemic disease. The calvarium is intact. The paranasal sinuses, mastoid air cells, and middle ear cavities are clear. IMPRESSION: No acute intracranial abnormality or calvarial fracture. ACT 112: Negative or not required by law. The above report was generated using voice recognition software. It may contain grammatical, syntax or spelling errors. Electronically signed by: Niall Latham M.D. 10/23/2024 10:57 AM Venous Doppler Study 10/23/24 11:36 BILATERAL LOWER EXTREMITY VENOUS DOPPLER HISTORY: Acute shortness of breath r/o DT/PE COMPARISON STUDY: 08/11/2022. FINDINGS: There is normal compressibility, flow, and augmentation within the bilateral lower extremity deep venous systems. IMPRESSION: No DVT within the right or left lower extremity. ACT 112: Negative or not required by law. Electronically signed by: Niall Latham M.D. 10/23/2024 12:25 PM Discharge Plan Visit Data Chief Complaint: Shortness of Breath/Dyspnea Stated Complaint: SOB, CARDIAC ASSESSMENT ED Provider: Ean Cruz Discharge Problem: ISLAS (dyspnea on exertion), Smoking greater than 30 pack years, Fall, Pulmonary edema, Atrial paroxysmal tachycardia Patient Disposition: Admitted As Inpatient Discharge Instructions Interventions: ED Discharge Assessment Last Done: 10/23/24 15:34
[2024-10-23 09:42] LABS: Basophils # (auto) 0.08 K/uL (0.00-0.20); Basophils % (auto) 0.7 %; Eosinophils # (auto) 0.09 K/uL (0.00-0.50); Eosinophils % (auto) 0.8 %; Hematocrit (blood only) 42.7 % (37.0-47.0); Hemoglobin 14.3 g/dl (12.0-16.0); Immature Granulocytes # (auto) 0.05 K/uL (0.01-0.20); Immature Granulocytes % (auto) 0.4 %; Lymphocytes # (auto) 1.21 K/uL (1.20-3.40); Lymphocytes % (auto) 10.9 %; Mean Corpuscular Hemoglobin 32.6 pg (25.0-34.0); Mean Corpuscular Hgb Conc 33.5 g/dL (32.0-36.0); Mean Corpuscular Volume 97.3 fL (80.0-100.0); Mean Platelet Volume 9.4 fL (9.4-12.4); Monocytes # (auto) 0.95 K/uL (0.11-0.59); Monocytes % (auto) 8.5 %; Neutrophils # (auto) 8.74 K/uL (1.40-6.50); Neutrophils % (auto) 78.7 %; Platelet Count 326 K/uL (130-400); RDW Coefficient of Variation 12.6 % (11.5-14.5); RDW Standard Deviation 45.3 fL (36.4-46.3); Red Blood Count 4.39 M/uL (4.20-5.40); White Blood Count 11.12 K/ul (4.8-10.8)
[2024-10-23 09:49] LABS: Albumin Globulin Ratio 1.3 (0.9-2); Albumin Level 3.9 gm/dl (3.4-5.0); BUN Creatinine Ratio 20.8 (10-20); Calcium 9.2 mg/dl (8.6-10.3); Creatinine Clr Calc Pharmacy 54.6 ml/min; Globulin 3.1 gm/dl (2.5-4.0); Potassium 4.2 mmol/L (3.5-5.1)
[2024-10-23 09:55] LABS: Troponin I High Sensitivity 29.5 pg/ml (0-14)
[2024-10-23 10:04] LABS: Thyroid Stimulating Hormone 5.677 uIu/ml (0.300-4.500)
--- NOTE | 2024-10-23 10:04 | XRay Report ---
XR chest 1V portable HISTORY: 74 years-old Female Dyspnea, recent fall COMPARISON: 12/26/2023 TECHNIQUE: AP view of the chest FINDINGS: Heart is normal in size. Atherosclerosis of the aorta. No pneumothorax. Layering pleural effusions wi th bibasilar consolidation. Pulmonary vascular congestion with interstitial coarsening. Degenerative changes of the shoulders and spine. IMPRESSION: 1. Cardiomegaly with pulmonary edema. 2. Layering pleural effusions with bibasilar consolidation. ACT 112: Negative or not required by law. The above report was generated using voice recognition software. It may contain grammatical, syntax o r spelling errors. Electronically signed by: Niall Latham M.D. 10/23/2024 10:03 AM
[2024-10-23 10:15] LABS: Partial Thromboplastin Ratio 0.9; Partial Thromboplastin Time 25 Seconds (21-31); Prothrombin Time 10.9 Seconds (9.0-12.0)
[2024-10-23] MEDS: OPTIRAY 320 125ml IV ONE (10:20)
[2024-10-23 10:21] LABS: Adenovirus PCR Not Detected (NotDetected); Bordetella parapertussis PCR Not Detected (NotDetected); Bordetella pertussis PCR Not Detected (NotDetected); Chlamydia pneumoniae PCR Not Detected (NotDetected); Coronavirus 229E PCR Not Detected (NotDetected); Coronavirus CoV-2 (COVID19)PCR Not Detected (NotDetected); Coronavirus HKU1 PCR Not Detected (NotDetected); Coronavirus NL63 PCR Not Detected (NotDetected); Coronavirus OC43PCR Not Detected (NotDetected); Human Metapneumovirus PCR Not Detected (NotDetected); Influenza A PCR Not Detected (NotDetected); Influenza B PCR Not Detected (NotDetected); Mycoplasma pneumoniae PCR Not Detected (NotDetected); Parainfluenza Virus 1 PCR Not Detected (NotDetected); Parainfluenza Virus 2 PCR Not Detected (NotDetected); Parainfluenza Virus 3 PCR Not Detected (NotDetected); Parainfluenza Virus 4 PCR Not Detected (NotDetected); Respiratory Syncytial VirusPCR Not Detected (NotDetected); Rhinovirus/Enterovirus PCR Not Detected (NotDetected)
[2024-10-23 10:40] LABS: T4 Free Thyroxine 0.85 ng/dl (0.61-1.60)
--- NOTE | 2024-10-23 10:59 | CT Scan Report ---
CT head/brain wo con CLINICAL HISTORY: 74 years-old Female with recent fall. Acute head trauma status post fall TECHNIQUE: Multiple axial CT images of the head were obtained without contrast. A dose lowering tech nique was utilized adhering to the principles of ALARA. COMPARISON: None. FINDINGS: No acute intracranial hemorrhage, midline shift, intracranial mass, hydrocephalus, territorial ischem ia or abnormal extra-axial collection. Calcifications of the falx cerebri. Involutional changes with chronic microvascular ischemic disease. The calvarium is intact. The paranasal sinuses, mastoid air cells, and middle ear cavities are clear . IMPRESSION: No acute intracranial abnormality or calvarial fracture. ACT 112: Negative or not required by law. The above report was generated using voice recognition software. It may contain grammatical, syntax o r spelling errors. Electronically signed by: Niall Latham M.D. 10/23/2024 10:57 AM
--- NOTE | 2024-10-23 11:04 | CT Scan Report ---
CT cervical spine wo con CT DOSE: 2248.01 mGy.cm CLINICAL HISTORY: 74 years-old Female with recent fall. Acute neck pain status post fall COMPARISON: Head CT of same TECHNIQUE: Multiple axial CT images of the cervical spine were obtained without contrast. A dose low ering technique was utilized adhering to the principles of ALARA. FINDINGS: Demineralized appearance of the bones. Moderate disc space narrowing at C5-C6 and C6-C7 wit h moderate spondylitic spurring. Multilevel facet arthrosis which is moderate to severe. Grade 1 ante rolisthesis C4 on C5 is likely secondary to the chronic facet disease. The cervical soft tissues appear unremarkable. Layering pleural effusions. Emphysema with interlobul ar septal thickening. Nonspecific stranding noted within the left supraclavicular tissues with subcen timeter lymph nodes, better seen on the same day chest CT. Left mandibular molar periapical cyst form ation with dental caries. IMPRESSION: 1. No acute cervical spine fracture or subluxation. 2. Please refer to the same day CTA chest for additional findings. ACT 112: Negative or not required by law. The above report was generated using voice recognition software. It may contain grammatical, syntax o r spelling errors. Electronically signed by: Niall Latham M.D. 10/23/2024 11:01 AM
--- NOTE | 2024-10-23 11:18 | CT Scan Report ---
CT angio chest PE protocol, CT abd pelvis IV con only HISTORY: 74 years-old Female with PE, ISLAS, fall L chest contusions, new Afib. Acute left-sided ches t pain status post fall TECHNIQUE: Multiple CTA images of the chest were obtained after the intravenous administration of 112 ml Optiray. Coronal and sagittal MIPS were obtained from the axial data set and were submitted for review. All measurements were obtained according to NASCET criteria. CT abdomen and pelvis with IV c ontrast only also obtained. A dose lowering technique was utilized adhering to the principles of REJI Grijalva. COMPARISON: None. FINDINGS: CTA: Moderate cardiomegaly without pericardial effusion. Extensive coronary artery calcifications. The tho racic aorta was not well evaluated secondary to contrast bolus timing. There is atherosclerosis witho ut aneurysm or dissection. Dilation of the main pulmonary artery at 3.1 cm. No central pulmonary embo li are identified. The segmental and subsegmental branches are suboptimally evaluated secondary to co ntrast bolus timing. Well-defined filling defect/mixing artifact noted within segmental and subsegmen pili branches of the lung bases. CT CHEST: Unremarkable thyroid. Nonspecific borderline-enlarged mediastinal and hilar lymph nodes measure up to approximately 1.3 cm within the right hilum and 1.3 cm in the subcarinal distribution. Small to mode rate pleural effusions. Intralobular septal thickening. Moderate to severe pulmonary emphysema. Depen dent bibasilar predominant ground glass densities suggest atelectasis. No suspicious pulmonary nodule s or masses identified. Mild nonspecific left supraclavicular stranding may be on a posttraumatic bas is with subcentimeter adjacent lymph nodes. Degenerative changes of the shoulders and spine. Healing subacute nondisplaced fracture of the lateral left fourth, fifth and sixth and 10th ribs and anterior left seventh and eighth ribs. No acute fracture is identified. CT ABDOMEN/PELVIS: There is no pneumatosis or pneumoperitoneum. Unremarkable spleen and adrenal glands. Moderately atrop hic pancreas with 7 mm cystic focus of the pancreatic tail suggestive of a probable IPMN. Unremarkabl e gallbladder. Heterogeneity of the liver which is mildly enlarged. Unremarkable kidneys without hydr onephrosis. Subcentimeter probable cyst of the superior pole left kidney. No hydronephrosis. Partial distention of the urinary bladder with wall thickening. There is atherosclerosis of the aorta without aneurysm or dissection. No lymphadenopathy. Mild wall thickening of the distal esophagus. Trace free fluid within the pelvis. Areas of wall thick ening and partial distention noted throughout the large bowel. Noninflamed appendix. Small subcutaneo us contusion lateral to the left hip. No acute fracture identified. Severe multilevel degenerative ch anges of the lumbar spine with scoliosis. Chronic appearing compression deformity of the L1 vertebral body. IMPRESSION: 1. Probable mixing artifact noted within segmental and subsegmental branches of the basilar pulmonary arteries. Tiny pulmonary emboli considered much less likely. As a precautionary measure, lower extre mity Doppler recommended. 2. Healing subacute nondisplaced left-sided rib fractures. No acute rib fracture or pneumothorax iden tified. 3. Cardiomegaly with pulmonary edema and [id number] pleural effusions with bibasilar atelectas is. 4. Pulmonary arterial hypertension. 5. No acute posttraumatic intra-abdominal or intrapelvic abnormality. 6. Small subcutaneous contusion lateral to the left hip. 7. Incidental findings as above. ACT 112: Negative or not required by law. The above report was generated using voice recognition software. It may contain grammatical, syntax o r spelling errors. Electronically signed by: Niall Latham M.D. 10/23/2024 11:16 AM
--- NOTE | 2024-10-23 11:36 | History & Physical Report ---
Date of Service October 23, 2024 Assessment & Plan (1) Tachycardia: Plan: New onset A fib with RVR vs tachy-presley syndrome vs MAT - multiple EKGs reviewed and showed NSR with distinct P waves along with multiple bouts of tachycardia, difficult to differentiate if P waves during tachycardic episodes - TSH WNL - tele showing rates trending between 80-140s (questionable P waves even with tachycardia) ED course: 5 mg Lopressor IV - monitor on Telemetry - will order echo - Lopressor 5mg Q4H prn for HR >120 - consult cardio; possible pacemaker eval and differentiation of Afib vs ta chybradycardia - defer need for anticoagulation to cardio (2) Elevated troponin: Plan: suspect 2/2 demand with arrhythmia above 29.5 -> 32.8 - monitor on tele - denies CP, EKG showing no ST changes - trend troponin (3) CHF (congestive heart failure): (4) Pulmonary edema: Plan: No known history of heart failure, no previous echo on file suspected 2/2 ischemia vs CHF vs rate related CXR showing cardiomegaly with pulmonary edema, layering pleural effusions with bibasilar consolidation CTA showing cardiomegaly with pulmonary edema and small to moderate pleural effusions with bibasilar atelectasis, pulmonary arterial hypertension - BNP 1624 - Heart healthy, low-sodium diet - echo ordered - diuresis with Lasix 20 mg IV - will start as daily and adjust prn for goal of -1-2L/day - Strict I&O monitoring - Daily weights - daily BMP and Mg with diuretic (5) Hypoxia: Plan: 85% on RA -> 2 L NC Suspect secondary to arrhythmia, pulmonary edema, and undiagnosed COPD patient with ISALS x 2 weeks, worsened x 2 days - CTA showing probable mixing artifact noted with segmental and subsegmental branches of basilar pulmonary arteries, PE less likely - mild leukocytosis, no left shift, afebrile, VSS - biofire negative - Doppler negative - wean O2 as tolerated (6) Fall: Plan: history of mechanical fall multiple weeks ago, tripped over her dog CT showing small subcutaneous contusion of left later hip and healing subacute left rib fractures, lateral 4th, 5th, 6th, 10th and Anterior 7th + 8th ribs - caution with possible anticoagulation given multiple fall hx and bleeding risk - if requires anticoagulation, agree with low dose heparin (7) COPD (chronic obstructive pulmonary disease): Plan: suspect undiagnosed COPD; 30+ pack year hx Chest CT showing pulmonary arterial hypertension and mod/severe pulmonary emphysema - not wheezing, does not appear to be in acute exacerbation - arrange out pt follow up with Pulm with PFTs on DC Plan VTE ppx: SCDs; May need anticoagulation with above, deferred for now given fall hx Diet: Heart healthy, low NA diet Dispo: Med/tele Admission and Anticipated Discharge Date Admission Date: 10/23/24 History of Present Illness Chief Complaint: shortness of breath Primary Care Provider: Regan Villanueva DO Patient is a 74 y/o female with a PMHx of long standing tobacco use, arthritis, GI bleed (10/2022) 2/2 high dose ASA use (EGD showing gastritis, colonoscopy unremarkable). EMS noted periods of rapid A fib. She presents today due to ISLAS has been ongoing for 2 weeks, acutely worsened x 1 day. she stated that she does not have dyspnea at rest. She also feels like she has heart palpitations when she is up and moving around, stated that it is "on and off ", and has also been ongoing for a few weeks. She denies chest pain. Patient had a fall a few weeks ago that resulted in bruising of her arms, ribs, hip. She stated that she was going up the stairs and tripped over the dog, denies falling due to syncopal episode. She still has good range of motion. Patient denies fever, chills, headache, dizziness, lightheadedness, vision changes, rhinorrhea, sore throat, cough, sputum production, chest pain, abdominal pain, nausea, vomiting, diarrhea, constipation, edema. She is a and lives at home alone. She does have an extensive smoking history, smokes a pack per day x 50 years. She denies past medical history of DM, CA, VTE, COPD/asthma, hypertension. She does not use oxygen at baseline. Allergies Allergy/AdvReac Type Severity Reaction Status Date / Time No Known Allergies Allergy Verified 07/30/22 13:21 Home Medications Medication Instructions Recorded Confirmed Type Calcium + D 1 tab PO DAILY 10/23/24 10/23/24 History acetaminophen 325 mg tablet 650 mg PO Q8H PRN Pain 10/23/24 10/23/24 History multivitamin 1 tab PO DAILY 10/23/24 10/23/24 History Past Med/Surg History Problem List (Updated 10/23/24 @ 16:31 by Ean Cruz M.D.) Atrial paroxysmal tachycardia (Acute) Severe mitral regurgitation Moderate pulmonary hypertension PSVT (paroxysmal supraventricular tachycardia) Tachycardia CHF (congestive heart failure) Tachy-presley syndrome Elevated troponin COPD (chronic obstructive pulmonary disease) Hypoxia Pulmonary edema (Acute) ISLAS (dyspnea on exertion) (Acute) History of tibial fracture (07/26/22) Fracture of proximal end of right tibia from a fall Arthritis Anxiety and depression Anemia (Acute) Tobacco abuse (Acute) Acute GI bleeding (Acute) Encounter for pre-operative examination Acute blood loss anemia GI bleed Smoking greater than 30 pack years (Acute) Abrasion of right arm (Acute) Effusion of right knee joint (Acute) Fall (Acute) Surgical History No pertinent past surgical history Family History Grandfather Diabetes Father Diabetes Myocardial infarction Sister Hypertension Mother Myocardial infarction Denies family history of Ovarian cancer Prostate cancer Breast cancer Colorectal cancer Social History Smoking Status: Current every day smoker Tobacco Type: Cigarettes Cigarettes Per Day: pack; Second Hand Exposure: Yes; Do You Dip or Chew Tobacco: No; Tobacco Cessation Education Requested by Patient: No Hx Alcohol Use: Yes Alcohol type: wine Hx Substance Use: No Preferred Language: Thai Communication Ability: Effective Auto 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 Non-toxic appearing. HEENT- EOMI, mucous membranes moist. Hearing grossly intact. Heart-normal S1 and S2. No murmurs, rubs or gallops. Lungs-decreased BL LL, no respiratory distress, no accessory muscle use. 2L O2 via NC. Abdomen-normal bowel sounds and soft. No ascites noted. Non-tender. Extremities- no clubbing, cyanosis, or edema. Ecchymosis of left UE. Rheumatologic-normal range of motion. Psychiatric-normal affect. Results & Data Results & Data Vital Signs (Past 12 Hours) Vital Signs Temp Pulse Pulse Resp BP BP Pulse Ox 10/23/24 11:01 123 H 20 130/79 100 10/23/24 09:36 108 H 125/83 10/23/24 09:30 187 H 10/23/24 09:20 91 10/23/24 09:20 85 L 10/23/24 09:14 152 H 155/99 H 10/23/24 09:13 90 10/23/24 09:13 36.7 C 17 90 10/23/24 09:13 90 10/23/24 09:13 36.7 C 196 H 17 155/99 H 90 O2 Del Method O2 Flow Rate 10/23/24 11:01 Nasal Cannula 2 10/23/24 09:36 10/23/24 09:30 10/23/24 09:20 Nasal Cannula 2 10/23/24 09:20 Room Air 10/23/24 09:14 10/23/24 09:13 Room Air 10/23/24 09:13 Room Air 10/23/24 09:13 Room Air 10/23/24 09:13 Room Air Code Status & VTE Plan Code Status full VTE Prophylaxis Plan VTE Prophylaxis will be ordered: Yes Supervising Physician Co-Signing Physician Notes Patient seen and examined, chart reviewed, case discussed with Cristina Singh PA-C and I agree with the assessment and plan as above except as otherwise noted Labs and images reviewed 74yo F with falls several weeks ago, who now presents with shortnes sof breath, palpitations, with rapid dyspnea Cathie is a 74-year-old female who lives alone and has a history of longstanding tobacco use with ongoing pack per day tobacco use, prior history of painless GI bleed while on high-dose aspirin in 2021 with subsequent colonoscopy unremarkable and EGD showing evidence of gastritis subsequently placed on PPI, reported history of possible valvular disease although no echo available for review and no history of CHF who presents with falls several days prior to admission, weakness, shortness of breath worsening over 1 day and 2 and has been fluctuating between a tachycardic rhythm. Reportedly was intermittently bradycardic down to the 50s prehospital, alternating between sinus 80s and a irregular tachycardic rhythm 140s up to maximum 180 in the ER suspicious for possible underlying A-fib. Repeat EKG pending. She does not have diagnosed COPD however has extensive emphysematous changes on CT scan. She is not wheezing on admission, does not appear to be in acute COPD exacerbation. She does have bilateral pleural effusions with pulm edema distant with new CHF? Ischemic versus failure versus rate related. Trop is minimally elevated without chest pain at any point repeat pending. At bedside she clarifies that while her breathing is much worse in the last 2 days, she did notice that her breathing has been worsening somewhat in the last week. Again denies chest pain at any point. White count is with trace elevation 11.12, no fever, no left shift Patient is with new CHF. ?rate related with CHF vs MAT vs sinus tach. EKG 09:06:03 hours with preceding P waves with consistent SC, patient subsequently irregular and tachycardic but when rate intermittently slows down P waves are present BioFire is negative. BNP ordered New onset CHF,? Underlying A-fib/flutter vs MAT versus sinus tach CTA/P: Subacute nondisplaced left-sided rib fractures without acute fracture. Pulmonary edema/effusions as noted. No acute posttraumatic intra-abdominal or intrapelvic abnormality. Small subcutaneous contusion at left hip CTAchest: Probable mixing artifact of segmental/subsegmental basilar pulmonary arteries. Tiny pulmonary emboli within differential but less likely. Follow-up lower extremity DVTs were negative, suspect findings were artifact. Cardiology consulted to review EKGs.? Whether there is underlying atrial fibrillation/flutter requiring anticoagulation. Tele review is with heart rate as low as 70-80s. She has not been hypotensive or hemodynamically unstable echo is pending. Appreciate review and recommendations Continue Lasix will start with 20 mg IV and adjust as needed goal net -1-2 L/day. Strict ins and outs. Low-salt diet MTP 5 mg every 4 hours IV as needed Troponin trended If patient requires anticoagulation given multiple falls and bleeding risk, although no acute trauma/bleeding in the last 24 hours, agree with low-dose nomogram Agree with assessment and management as above PG Care Time/CCT Total # of Minutes Spent Total Time Spent with Patient: Total time spent is greater than 50% in coordination of care (as documented) at patient's floor/unit and/or counseling patient: Coding Level of Care Code 24085 INT INP/OBS CARE 3/75MIN Diagnoses Tachycardia R00.0 Elevated troponin R79.89 CHF (congestive heart failure) I50.9 Pulmonary edema J81.1 Hypoxia R09.02 Fall W19.XXXA COPD (chronic obstructive pulmonary disease) J44.9
[2024-10-23] MEDS: FUROSEMIDE INJ 20 MG/2 ML VIAL IV ONE (12:27)
--- NOTE | 2024-10-23 12:27 | Ultrasound Report ---
BILATERAL LOWER EXTREMITY VENOUS DOPPLER HISTORY: Acute shortness of breath r/o DT/PE COMPARISON STUDY: 08/11/2022. FINDINGS: There is normal compressibility, flow, and augmentation within the bilateral lower extremit y deep venous systems. IMPRESSION: No DVT within the right or left lower extremity. ACT 112: Negative or not required by law. Electronically signed by: Niall Latham M.D. 10/23/2024 12:25 PM
[2024-10-23] MEDS ORDERED: METOPROLOL TARTRATE 1 MG/ML VIAL IV PRN (12:57)
--- NOTE | 2024-10-23 13:11 | Electrocardiogram Report ---
Test Reason : Blood Pressure : */* mmHG Vent. Rate : 116 BPM Atrial Rate : 116 BPM P-R Int : 120 ms QRS Dur : 92 ms QT Int : 316 ms P-R-T Axes : 53 82 37 degrees QTcB Int : 439 ms Multifocal atrial tachycardia Nonspecific ST abnormality Anterolateral leads Abnormal ECG When compared with ECG of 03-Nov-2022 08:43, Multifocal atrial tachycardia now present HR has increased 17 bpm Confirmed by Anderson Roy ([id number]) on 10/23/2024 1:11:07 PM Referred By: REFERRED SELF Confirmed By: Anderson Roy
--- NOTE | 2024-10-23 13:18 | XCELERA ---
[id number]
[2024-10-23 13:19] LABS: Appearance Urine Clear (Clear); Bacteria Urine Automated None Seen (None Seen); Bilirubin Urine Negative (Negative); Blood Urine Negative (Negative); Cast Urine Automated 0-2 /lpf (0-2); Color Urine Yellow; Epithelial Cell Urine Auto 0-2 /hpf (0-2); Glucose Urine UA Negative (Negative); Ketones Urine Negative (Negative); Leukocyte Esterase Urine Negative (Negative); Nitrite Urine Negative (Negative); Protein Urine 1+ (Negative); RBC Urine Automated 0-2 /hpf (0-2); Specific Gravity Urine 1.042 (1.000-1.030); Urobilinogen Urine Negative (Negative); WBC Urine Automated 0-5 /hpf (0-5); pH Urine 5.5 (4.5-7.5)
--- NOTE | 2024-10-23 15:03 | Cardiology Consultation ---
Date of Consultation October 23, 2024 Assessment & Plan (1) ISLAS (dyspnea on exertion): (2) PSVT (paroxysmal supraventricular tachycardia): (3) Severe mitral regurgitation: (4) COPD (chronic obstructive pulmonary disease): (5) Moderate pulmonary hypertension: Plan 74-year-old woman with significant but previously well compensated COPD, no cardiac history, who presents with tachypalpitations and dyspnea on exertion, found to have paroxysmal supraventricular tachycardia with perhaps minimal volume overload. She has no overt heart failure symptoms and appears fairly euvolemic, she did receive 1 dose of IV furosemide, would hold on further diuretics in the absence of more clear-cut volume overload. Would initiate metoprolol 25 mg PO every 6 hours with hold orders for heart rate less than 60 bpm or SBP less than 90 mmHg to suppress tachydysrhythmia. No immediate need for anticoagulation given absence of sustained atrial dysrhythmias and uncertainty as to whether this is atrial flutter. She does have a history of GI bleed, but this apparently was due to high-dose aspirin, so should not be a contraindication to chronic anticoagulation if this is ultimately determined to be necessary. Could consider amiodarone, but given her underlying lung disease and the fact she has not had a trial of more benign negative chronotropic regimen (such as metoprolol) would first try the metoprolol before proceeding to antiarrhythmic. Her minimal/flat troponin curve, absence of chest pain, in the absence of significant ST deviation on her ECG all weigh against a significant ischemic component. She does have a mild element of bronchospasm/poor airflow which may benefit from anticholinergic and beta agonist inhalers (Xopenex preferred given tachydysrhythmias). Her mitral regurgitation appears severe and is likely a contributing source of her atrial dysrhythmia. Once her rhythm is controlled, would consider transesophageal echocardiogram (could be done as outpatient) to further evaluate her valvular disease. Will follow along with you while she is hospitalized. Much of her family follows with Dr. Taveras, upon discharge she would like to follow up with him as well. History of Present Illness Reason for Consultation: tachycardia, MAT vs A-fib vs tachybrady Requesting Physician: Jamie Ly MD Attending Physician: Jamie Ly MD History of Present Illness 74-year-old woman with probable moderate COPD, GI bleed 2021 (high-dose aspirin), no prior cardiac history who noted several weeks of dyspnea on exertion and tachypalpitations, found in ER to have sinus rhythm with frequent runs of atrial tachydysrhythmias. At recent baseline, despite significant COPD, she can perform all activities of daily living without difficulty. For several weeks now, she notes that she becomes breathless quite easily and she often feels a sense of rapid and forceful heartbeat lasting from a few seconds to a few minutes at a time. She denies chest pain at any time and notes no orthopnea, PND, leg edema, or weight gain. No orthostatic lightheadedness, presyncope, or syncope. Initial ECG showed sinus rhythm with multifocal atrial tachycardia, another ECG and telemetry show runs of supraventricular tachycardia lasting up to a minute or so at a time. The rhythm is regular and rapid (up to 160 bpm) and may represent atrial flutter or could be a supraventricular tachycardia of another mechanism. She had multiple episodes during my interview with her, most of which she was unaware of. Troponin was minimally elevated (29 and 32), no ST deviations or chest pain to suggest ischemic component. She had no somatic complaints at rest at the time my evaluation today. Allergies Allergy/AdvReac Type Severity Reaction Status Date / Time No Known Allergies Allergy Verified 07/30/22 13:21 Home Medications Medication Instructions Recorded Confirmed Type Calcium + D 1 tab PO DAILY 10/23/24 10/23/24 History acetaminophen 325 mg tablet 650 mg PO Q8H PRN Pain 10/23/24 10/23/24 History multivitamin 1 tab PO DAILY 10/23/24 10/23/24 History Patient History Surgical History No pertinent past surgical history Family History Grandfather Diabetes Father Diabetes Myocardial infarction Sister Hypertension Mother Myocardial infarction Denies family history of Ovarian cancer Prostate cancer Breast cancer Colorectal cancer Social History Smoking Status: Current every day smoker Tobacco Type: Cigarettes Cigarettes Per Day: 1/2 pack a day; Hx Alcohol Use: Yes Alcohol type: wine Hx Substance Use: No Preferred Language: Slovak Communication Ability: Effective Patient Portal Concierge Required: No Beliefs That Will Affect Care: None marital status: Current Living Situation: Alone Feels Safe at Home: Yes Assistive Devices: Brace/Splint/Immobilizer, Cane and Wheelchair Physical Exam Physical Exam: Elderly white female currently in no distress. Afebrile. Normotensive. Variable pulse between 80 bpm and 130 bpm due to intermittent tachydysrhythmia's. Skin: Large ecchymosis left shoulder/chest/back (fell a few days ago), no generalized lesions. HEENT: unremarkable. Neck: JVP at the clavicle at 90 degrees, no carotid bruits. Lungs: Markedly decreased breath sounds with scattered rhonchi and occasional expiratory wheeze. No crackles or accessory muscle use. Cardiac: regular rhythm which was intermittently tachycardic, normal S1-2, 23/6 apical systolic murmur radiating to the axilla, no diastolic murmur. Abdomen: benign. Extremities: no edema, pulses intact. Neurologic: normal affect and conversation, nonfocal. Results & Data Laboratory Results Normal electrolytes including potassium of 4.2. BUN 16, creatinine 0.77. Normal CBC. BNP 1624. Diagnostic Findings Initial ECG showed sinus rhythm with multifocal atrial tachycardia. A second ECG showed sinus rhythm followed by supraventricular tachycardia (regular rhythm at 150/160 bpm). Telemetry showed sinus rhythm with intermittent regular tachydysrhythmia. Chest CT showed cardiomegaly with pulmonary edema and small to moderate pleural effusions with bibasilar atelectasis, pulmonary arterial hypertension, and probable mixing artifact unlikely to be pulmonary embolism (venous Doppler was negative). Echocardiogram showed normal LV function (EF 55 to 60%) with normal wall motion, there was severe mitral regurgitation with moderately dilated left atrium, moderate tricuspid digitation with moderate pulmonary hypertension, mildly dilated IVC. PG Care Time/CCT Total # of Minutes Spent Total Time Spent with Patient: Total time spent is greater than 50% in coordination of care (as documented) at patient's floor/unit and/or counseling patient: Coding Level of Care Code 52769 IN/OBS CONSULT LVL 4,60M Diagnoses ISLAS (dyspnea on exertion) R06.09 PSVT (paroxysmal supraventricular tachycardia) I47.10 Severe mitral regurgitation I34.0 COPD (chronic obstructive pulmonary disease) J44.9 Moderate pulmonary hypertension I27.20
[2024-10-23] MEDS ORDERED: DOCUSATE SODIUM 100 MG CAP PO PRN (16:01)
[2024-10-23] MEDS ORDERED: ACETAMINOPHEN 325 MG TAB PO PRN (16:01)
[2024-10-23] MEDS: METOPROLOL TARTRATE 25 MG TAB PO SCH (19:28)
[2024-10-23] MEDS ORDERED: METOPROLOL TARTRATE 25 MG TAB PO SCH (21:00)
[2024-10-24 08:01] LABS: Basophils # (auto) 0.06 K/uL (0.00-0.20); Basophils % (auto) 0.6 %; Eosinophils # (auto) 0.13 K/uL (0.00-0.50); Eosinophils % (auto) 1.3 %; Hematocrit (blood only) 39.1 % (37.0-47.0); Hemoglobin 13.3 g/dl (12.0-16.0); Immature Granulocytes # (auto) 0.03 K/uL (0.01-0.20); Immature Granulocytes % (auto) 0.3 %; Lymphocytes # (auto) 1.44 K/uL (1.20-3.40); Lymphocytes % (auto) 14.2 %; Mean Corpuscular Hemoglobin 32.2 pg (25.0-34.0); Mean Corpuscular Volume 94.7 fL (80.0-100.0); Mean Platelet Volume 9.3 fL (9.4-12.4); Monocytes # (auto) 1.08 K/uL (0.11-0.59); Monocytes % (auto) 10.7 %; Neutrophils # (auto) 7.39 K/uL (1.40-6.50); Neutrophils % (auto) 72.9 %; Platelet Count 283 K/uL (130-400); RDW Coefficient of Variation 12.5 % (11.5-14.5); RDW Standard Deviation 43.4 fL (36.4-46.3); Red Blood Count 4.13 M/uL (4.20-5.40); White Blood Count 10.13 K/ul (4.8-10.8)
[2024-10-24 08:08] LABS: BUN Creatinine Ratio 19.8 (10-20); Calcium 8.8 mg/dl (8.6-10.3); Creatinine Clr Calc Pharmacy 51.9 ml/min; Magnesium 1.9 mg/dl (1.7-2.4); Potassium 4.3 mmol/L (3.5-5.1)
[2024-10-24] MEDS ORDERED: FUROSEMIDE INJ 20 MG/2 ML VIAL IV SCH (09:00)
--- NOTE | 2024-10-24 10:18 | Electrocardiogram Report ---
Test Reason : Blood Pressure : */* mmHG Vent. Rate : 145 BPM Atrial Rate : * BPM P-R Int : * ms QRS Dur : 82 ms QT Int : 230 ms P-R-T Axes : * 85 -82 degrees QTcB Int : 357 ms Sinus rhythm followed by run of Supraventricular tachycardia Nonspecific ST and T wave abnormality during Supraventricular tachycardia Abnormal ECG When compared with ECG of 23-Oct-2024 09:06, Supraventricular tachycardia now present Confirmed by Anderson Roy [id number] on 10/24/2024 10:17:55 AM Referred By: REFERRED SELF Confirmed By: Anderson Roy
--- NOTE | 2024-10-24 13:31 | Cardiology Progress Note ---
Date of Service October 24, 2024 Assessment & Plan (1) PSVT (paroxysmal supraventricular tachycardia): (2) ISLAS (dyspnea on exertion): (3) Severe mitral regurgitation: (4) COPD (chronic obstructive pulmonary disease): (5) Moderate pulmonary hypertension: Plan Doing well clinically but still with frequent episodes of atrial tachydysrhythmia (SVT versus atrial flutter). Beta-florencio seems ineffective, recommend initiation of diltiazem (30 mg every 8 hours), would reduce metoprolol to 25 mg twice daily to reduce risk of hypotension. If this fails or is not tolerated, would consider amiodarone. Although she is relatively young, she has advanced pulmonary disease which impacts her physiologic age. Reluctant to use flecainide given the structural heart disease of severe mitral regurgitation. Amiodarone would likely be efficacious, but might make it more difficult to identify a potential ablation target. For all these reasons, continue attempts with beta-florencio/calcium channel florencio combination, but likely shift to amiodarone tomorrow if combination is ineffective. No sustained tachydysrhythmias, therefore no immediate need for anticoagulation. Severe mitral regurgitation is well compensated, will address after her rhythm issues have resolved. Case discussed with Dr. Covington. Admission and Anticipated Discharge Date Admission Date: October 23, 2024 Subjective She feels well, no dyspnea at rest or with minor exertion, no chest pain, subjective palpitations, or lightheadedness. Telemetry shows sinus rhythm with somewhat diminished but still fairly frequent episodes of supraventricular tachycardia, usually seconds to a minute or so minute in duration (apparently asymptomatic). Physical Exam Physical Exam: Elderly white female currently in no distress. Afebrile. Normotensive. Variable pulse between 80 bpm and 130 bpm due to intermittent tachydysrhythmia's. Skin: Large ecchymosis left shoulder/chest/back (fell a few days ago), no generalized lesions. HEENT: unremarkable. Neck: JVP at the clavicle at 90 degrees, no carotid bruits. Lungs: Markedly decreased breath sounds with scattered rhonchi and occasional expiratory wheeze. No crackles or accessory muscle use. Cardiac: regular rhythm which was intermittently tachycardic, normal S1-2, 23/6 apical systolic murmur radiating to the axilla, no diastolic murmur. Abdomen: benign. Extremities: no edema, pulses intact. Neurologic: normal affect and conversation, nonfocal. Results & Data Laboratory Results Normal electrolytes, BUN 16, creatinine 0.81. PG Care Time/CCT Total # of Minutes Spent Total Time Spent with Patient: Total time spent is greater than 50% in coordination of care (as documented) at patient's floor/unit and/or counseling patient: Coding Level of Care Code 25304 SUB INP/OBS CARE 2/35MIN Diagnoses PSVT (paroxysmal supraventricular tachycardia) I47.10 ISLAS (dyspnea on exertion) R06.09 Severe mitral regurgitation I34.0 COPD (chronic obstructive pulmonary disease) J44.9 Moderate pulmonary hypertension I27.20
[2024-10-24] MEDS: dilTIAZem HCL 30 MG TAB PO SCH (13:34)
--- NOTE | 2024-10-24 15:50 | Hospitalist Progress Note ---
Date of Service October 24, 2024 Assessment & Plan (1) Tachycardia: Plan: New onset A fib with RVR vs tachy-presley syndrome vs MAT - multiple EKGs reviewed and showed NSR with distinct P waves along with multiple bouts of tachycardia, difficult to differentiate if P waves during tachycardic episodes - TSH WNL - tele showing rates trending between 80-140s (questionable P waves even with tachycardia) ED course: 5 mg Lopressor IV - monitor on Telemetry - will order echo - Lopressor 5mg Q4H prn for HR >120 - consult cardio; possible pacemaker eval and differentiation of Afib vs ta chybradycardia - defer need for anticoagulation to cardio Added diltiazem while cutting back metoprolol due to rate not being controlled. (2) Elevated troponin: Plan: suspect 2/2 demand with arrhythmia above 29.5 -> 32.8 - monitor on tele - denies CP, EKG showing no ST changes - trend troponin (3) CHF (congestive heart failure): (4) Pulmonary edema: Plan: No known history of heart failure, no previous echo on file suspected 2/2 ischemia vs CHF vs rate related CXR showing cardiomegaly with pulmonary edema, layering pleural effusions with bibasilar consolidation CTA showing cardiomegaly with pulmonary edema and small to moderate pleural effusions with bibasilar atelectasis, pulmonary arterial hypertension - BNP 1624 - Heart healthy, low-sodium diet - echo ordered - diuresis with Lasix 20 mg IV - will start as daily and adjust prn for goal of -1-2L/day - Strict I&O monitoring - Daily weights - daily BMP and Mg with diuretic (5) Hypoxia: Plan: 85% on RA -> 2 L NC Suspect secondary to arrhythmia, pulmonary edema, and undiagnosed COPD patient with ISLAS x 2 weeks, worsened x 2 days - CTA showing probable mixing artifact noted with segmental and subsegmental branches of basilar pulmonary arteries, PE less likely - mild leukocytosis, no left shift, afebrile, VSS - biofire negative - Doppler negative - wean O2 as tolerated (6) Fall: Plan: history of mechanical fall multiple weeks ago, tripped over her dog CT showing small subcutaneous contusion of left later hip and healing subacute left rib fractures, lateral 4th, 5th, 6th, 10th and Anterior 7th + 8th ribs - caution with possible anticoagulation given multiple fall hx and bleeding risk - if requires anticoagulation, agree with low dose heparin (7) COPD (chronic obstructive pulmonary disease): Plan: suspect undiagnosed COPD; 30+ pack year hx Chest CT showing pulmonary arterial hypertension and mod/severe pulmonary emphysema - not wheezing, does not appear to be in acute exacerbation - arrange out pt follow up with Pulm with PFTs on DC Plan VTE ppx: SCDs; May need anticoagulation with above, deferred for now given fall hx Diet: Heart healthy, low NA diet Dispo: Med/tele Admission and Anticipated Discharge Date Admission Date: October 23, 2024 Subjective 74 yo female reports no new symptoms. She states that she is breathing better. Physical Exam Physical Exam: The patient is awake, alert and oriented 3, in no acute distress. Non-toxic appearing. HEENT- EOMI, mucous membranes moist. Hearing grossly intact. Lungs- no respiratory distress, no accessory muscle use. 1L O2 via NC. Abdomen-normal bowel sounds and soft. No ascites noted. Non-tender. Rheumatologic-normal range of motion. Psychiatric-normal affect. Results & Data Results & Data Vital Signs (Past 12 Hours) Vital Signs Temp Pulse Pulse Pulse Resp BP BP 10/24/24 13:04 69 10/24/24 12:21 73 114/74 10/24/24 11:58 36.5 C 64 18 90/60 L 10/24/24 07:55 10/24/24 07:38 36.7 C 81 18 114/71 10/24/24 05:41 68 10/24/24 04:00 36.7 C 71 18 112/80 Pulse Ox O2 Del Method O2 Flow Rate 10/24/24 13:04 10/24/24 12:21 10/24/24 11:58 92 Nasal Cannula 1 10/24/24 07:55 Nasal Cannula 2 10/24/24 07:38 92 Room Air 2 10/24/24 05:41 10/24/24 04:00 95 Nasal Cannula 2 PG Care Time/CCT Total # of Minutes Spent Total Time Spent with Patient: Total time spent is greater than 50% in coordination of care (as documented) at patient's floor/unit and/or counseling patient: Coding Level of Care Code 94644 SUB INP/OBS CARE 2/35MIN Diagnoses Tachycardia R00.0 Elevated troponin R79.89 CHF (congestive heart failure) I50.9 Pulmonary edema J81.1 Hypoxia R09.02 Fall W19.XXXA COPD (chronic obstructive pulmonary disease) J44.9
[2024-10-24] MEDS: METOPROLOL TARTRATE 25 MG TAB PO SCH (20:52)
[2024-10-25 07:05] LABS: Basophils # (auto) 0.05 K/uL (0.00-0.20); Basophils % (auto) 0.6 %; Eosinophils # (auto) 0.13 K/uL (0.00-0.50); Eosinophils % (auto) 1.4 %; Hematocrit (blood only) 39.7 % (37.0-47.0); Hemoglobin 13.5 g/dl (12.0-16.0); Immature Granulocytes # (auto) 0.03 K/uL (0.01-0.20); Immature Granulocytes % (auto) 0.3 %; Lymphocytes # (auto) 1.48 K/uL (1.20-3.40); Lymphocytes % (auto) 16.3 %; Mean Corpuscular Hemoglobin 32.3 pg (25.0-34.0); Monocytes # (auto) 1.05 K/uL (0.11-0.59); Monocytes % (auto) 11.6 %; Neutrophils # (auto) 6.35 K/uL (1.40-6.50); Neutrophils % (auto) 69.8 %; Platelet Count 269 K/uL (130-400); RDW Coefficient of Variation 12.5 % (11.5-14.5); RDW Standard Deviation 43.6 fL (36.4-46.3); Red Blood Count 4.18 M/uL (4.20-5.40); White Blood Count 9.09 K/ul (4.8-10.8)
[2024-10-25 07:26] LABS: BUN Creatinine Ratio 21.8 (10-20); Calcium 8.6 mg/dl (8.6-10.3); Creatinine Clr Calc Pharmacy 53.9 ml/min; Potassium 4.3 mmol/L (3.5-5.1)
[2024-10-25] MEDS: METOPROLOL SUCC 50MG EXT REL TAB PO SCH (12:59)
--- NOTE | 2024-10-25 13:53 | Cardiology Progress Note ---
Date of Service October 25, 2024 Assessment & Plan (1) PSVT (paroxysmal supraventricular tachycardia): (2) ISLAS (dyspnea on exertion): (3) Severe mitral regurgitation: (4) COPD (chronic obstructive pulmonary disease): (5) Moderate pulmonary hypertension: Plan Although she is doing well clinically and has much less frequent and much briefer episodes of atrial tachydysrhythmia (SVT versus atrial flutter), she still appears to have mildly labored respirations. Will change from short to long-acting negative chronotropic agents, increase activity, possible discharge tomorrow. Initiate extended release diltiazem 120 mg daily and metoprolol succinate 50 mg daily to replace shorter acting versions. May still need to consider antiarrhythmic in the future, but at this point she has been tolerating the combination calcium channel florencio and beta-florencio and they seem reasonably effective. No need for anticoagulation in the absence of any sustained tachydysrhythmia and the likelihood that this is a supraventricular tachycardia. Severe mitral regurgitation well compensated, can be addressed as outpatient. Case discussed with Dr. Worthy. Admission and Anticipated Discharge Date Admission Date: October 23, 2024 Subjective No complete. Denies chest pain, dyspnea at rest, subjective palpitations, or any lightheadedness. Telemetry shows much less frequent runs of supraventricular tachycardia, runs lasted few seconds rather than a few minutes. Physical Exam Physical Exam: No distress. Normotensive. Pulse 58 bpm and regular with intermittent ectopy. Respirations 20 with mild accessory muscle use. Skin: Large ecchymosis left shoulder/chest/back (fell a few days ago), no generalized lesions. HEENT: unremarkable. Neck: JVP at the clavicle at 90 degrees, no carotid bruits. Lungs: Markedly decreased breath sounds with scattered rhonchi and occasional expiratory wheeze. No crackles or accessory muscle use. Cardiac: regular rhythm, normal S1-2, 23/6 apical systolic murmur radiating to the axilla, no diastolic murmur. Abdomen: benign. Extremities: no edema, pulses intact. Neurologic: normal affect and conversation, nonfocal. Results & Data Laboratory Results Normal electrolytes, BUN 17, creatinine 0.78. PG Care Time/CCT Total # of Minutes Spent Total Time Spent with Patient: Total time spent is greater than 50% in coordination of care (as documented) at patient's floor/unit and/or counseling patient: Coding Level of Care Code 54607 SUB INP/OBS CARE MIN Diagnoses PSVT (paroxysmal supraventricular tachycardia) I47.10 ISLAS (dyspnea on exertion) R06.09 Severe mitral regurgitation I34.0 COPD (chronic obstructive pulmonary disease) J44.9 Moderate pulmonary hypertension I27.20
--- NOTE | 2024-10-25 14:12 | XRay Report ---
XR chest 2V PA/lateral HISTORY: 74 years-old Female hypoxia COMPARISON: 10/23/2024 TECHNIQUE: PA and lateral views of the chest FINDINGS: Cardiomegaly with persistent pulmonary edema. Mildly decreased size of the Layering pleural effusions with improving bibasilar consolidation. No pneumothorax. Sigmoidal scoliosis of the spine. IMPRESSION: Cardiomegaly with persistent pulmonary edema. There is decreased size of the layering ple ural effusions with improving bibasilar consolidation. ACT 112: Negative or not required by law. The above report was generated using voice recognition software. It may contain grammatical, syntax o r spelling errors. Electronically signed by: Niall Latham M.D. 10/25/2024 2:10 PM
[2024-10-25] MEDS: dilTIAZem HCL 120 MG CAPCR PO SCH (14:35)
[2024-10-25] MEDS: METOPROLOL TARTRATE 25 MG TAB PO SCH (20:31)
--- NOTE | 2024-10-25 23:01 | Hospitalist Progress Note ---
Date of Service October 25, 2024 Assessment & Plan (1) Tachycardia: Plan: New onset A fib with RVR vs tachy-presley syndrome vs MAT - multiple EKGs reviewed and showed NSR with distinct P waves along with multiple bouts of tachycardia, difficult to differentiate if P waves during tachycardic episodes - TSH WNL - tele showing rates trending between 80-140s (questionable P waves even with tachycardia) ED course: 5 mg Lopressor IV - monitor on Telemetry - will order echo - Lopressor 5mg Q4H prn for HR >120 - consult cardio; possible pacemaker eval and differentiation of Afib vs t achybradycardia - defer need for anticoagulation to cardio Added diltiazem while cutting back metoprolol due to rate not being controlled. Switched diltiazem to extended release on 10/25 (2) Elevated troponin: Plan: suspect 2/2 demand with arrhythmia above 29.5 -> 32.8 - monitor on tele - denies CP, EKG showing no ST changes - trend troponin (3) CHF (congestive heart failure): (4) Pulmonary edema: Plan: No known history of heart failure, no previous echo on file suspected 2/2 ischemia vs CHF vs rate related CXR showing cardiomegaly with pulmonary edema, layering pleural effusions with bibasilar consolidation CTA showing cardiomegaly with pulmonary edema and small to moderate pleural effusions with bibasilar atelectasis, pulmonary arterial hypertension - BNP 1624 - Heart healthy, low-sodium diet - echo ordered - Diuretics ordered on 10/25 - Strict I&O monitoring - Daily weights - daily BMP and Mg with diuretic (5) Hypoxia: Plan: 85% on RA -> 2 L NC Suspect secondary to arrhythmia, pulmonary edema, and undiagnosed COPD patient with ISLAS x 2 weeks, worsened x 2 days - CTA showing probable mixing artifact noted with segmental and subsegmental branches of basilar pulmonary arteries, PE less likely - mild leukocytosis, no left shift, afebrile, VSS - biofire negative - Doppler negative - wean O2 as tolerated (6) Fall: Plan: history of mechanical fall multiple weeks ago, tripped over her dog CT showing small subcutaneous contusion of left later hip and healing subacute left rib fractures, lateral 4th, 5th, 6th, 10th and Anterior 7th + 8th ribs - caution with possible anticoagulation given multiple fall hx and bleeding risk - if requires anticoagulation, agree with low dose heparin (7) COPD (chronic obstructive pulmonary disease): Plan: suspect undiagnosed COPD; 30+ pack year hx Chest CT showing pulmonary arterial hypertension and mod/severe pulmonary emphysema - not wheezing, does not appear to be in acute exacerbation - arrange out pt follow up with Pulm with PFTs on DC Plan VTE ppx: SCDs; May need anticoagulation with above, deferred for now given fall hx Diet: Heart healthy, low NA diet Dispo: Med/tele Admission and Anticipated Discharge Date Admission Date: October 23, 2024 Subjective 74 yo female reports no new symptoms. Physical Exam Physical Exam: The patient is awake, alert and oriented 3, in no acute distress. Non-toxic appearing. HEENT- EOMI, mucous membranes moist. Hearing grossly intact. Lungs- no respiratory distress, no accessory muscle use. 1L O2 via NC. Abdomen-normal bowel sounds and soft. No ascites noted. Non-tender. Rheumatologic-normal range of motion. Psychiatric-normal affect. Results & Data Results & Data Vital Signs (Past 12 Hours) Vital Signs Temp Pulse Pulse Resp BP BP Pulse Ox 10/25/24 20:15 10/25/24 19:15 36.9 C 70 16 107/64 93 10/25/24 15:08 37.0 C 53 L 20 120/80 92 10/25/24 14:00 70 10/25/24 11:32 36.5 C 58 L 18 113/68 93 O2 Del Method O2 Flow Rate 10/25/24 20:15 Nasal Cannula 1 10/25/24 19:15 Nasal Cannula 1 10/25/24 15:08 Room Air 10/25/24 14:00 10/25/24 11:32 Nasal Cannula 2 PG Care Time/CCT Total # of Minutes Spent Total Time Spent with Patient: Total time spent is greater than 50% in coordination of care (as documented) at patient's floor/unit and/or counseling patient: Coding Level of Care Code 14972 SUB INP/OBS CARE 2/35MIN Diagnoses Tachycardia R00.0 Elevated troponin R79.89 CHF (congestive heart failure) I50.9 Pulmonary edema J81.1 Hypoxia R09.02 Fall W19.XXXA COPD (chronic obstructive pulmonary disease) J44.9
[2024-10-26] MEDS: FUROSEMIDE 40 MG/4 ML VIAL IV ONE (05:25)
[2024-10-26 07:03] LABS: Basophils # (auto) 0.07 K/uL (0.00-0.20); Basophils % (auto) 0.8 %; Eosinophils # (auto) 0.16 K/uL (0.00-0.50); Eosinophils % (auto) 1.9 %; Hematocrit (blood only) 42.8 % (37.0-47.0); Hemoglobin 14.8 g/dl (12.0-16.0); Immature Granulocytes # (auto) 0.03 K/uL (0.01-0.20); Immature Granulocytes % (auto) 0.4 %; Lymphocytes % (auto) 16.5 %; Mean Corpuscular Hemoglobin 32.5 pg (25.0-34.0); Mean Corpuscular Hgb Conc 34.6 g/dL (32.0-36.0); Mean Corpuscular Volume 93.9 fL (80.0-100.0); Mean Platelet Volume 9.2 fL (9.4-12.4); Monocytes # (auto) 0.99 K/uL (0.11-0.59); Monocytes % (auto) 11.7 %; Neutrophils # (auto) 5.81 K/uL (1.40-6.50); Neutrophils % (auto) 68.7 %; Platelet Count 282 K/uL (130-400); RDW Coefficient of Variation 12.2 % (11.5-14.5); RDW Standard Deviation 42.5 fL (36.4-46.3); Red Blood Count 4.56 M/uL (4.20-5.40); White Blood Count 8.46 K/ul (4.8-10.8)
[2024-10-26 07:25] LABS: BUN Creatinine Ratio 21.9 (10-20); Calcium 9.1 mg/dl (8.6-10.3); Creatinine Clr Calc Pharmacy 57.6 ml/min; Potassium 4.3 mmol/L (3.5-5.1)
[2024-10-26] MEDS: METOPROLOL SUCC 50MG EXT REL TAB PO SCH (08:00)
[2024-10-26 08:44] VITALS: O2SAT 90
--- NOTE | 2024-10-26 10:53 | Cardiology Progress Note ---
Date of Service October 26, 2024 Assessment & Plan (1) ISLAS (dyspnea on exertion): (2) (HFpEF) heart failure with preserved ejection fraction: (3) PSVT (paroxysmal supraventricular tachycardia): (4) Severe mitral regurgitation: (5) COPD (chronic obstructive pulmonary disease): (6) Moderate pulmonary hypertension: Plan Atrial tachydysrhythmia seems well-controlled on combination of diltiazem and metoprolol. Dysrhythmia is most consistent with multifocal atrial tachycardia and runs of SVT, as such would not need chronic anticoagulation. No real clinical heart failure, she is able to lie flat and neck veins are not markedly elevated, but chest x-ray IS suggestive of volume overload. Doubt that she has major volume overload, some of the pulmonary congestion could be from her significant mitral regurgitation. As such, after her IV diuretic today, would be reasonable to discharge on a gentler diuretic routinely (such as triamterene/hydrochlorothiazide 37.5/25 daily). Severe mitral regurgitation will need to be addressed, would allow her to reach equilibrium with diuretics and rhythm control, then obtain outpatient transesophageal echocardiogram to further characterize anatomy and severity of mitral regurgitation. Upon discharge please arrange follow-up with Dr. Taveras (he sees many of her relatives). Admission and Anticipated Discharge Date Admission Date: October 23, 2024 Subjective She is doing well. She is able to sleep lying flat and took a short walk without noting major dyspnea. She denies subjective palpitations, chest pain, or lightheadedness. She received a dose of IV Lasix this morning and has been diuresing. Telemetry showed sinus rhythm in the 60 to 70 bpm range, infrequent episodes of atrial runs only. No sustained atrial tachydysrhythmias. Physical Exam Physical Exam: No distress. Normotensive. Pulse 74 bpm and regular. Respirations 20. Skin: Shoulder ecchymosis as previously noted, no generalized lesions. HEENT: unremarkable. Neck: JVP at the clavicle with increased respiratory variation at 90 degrees, no carotid bruits. Lungs: Markedly decreased breath sounds with scattered rhonchi and occasional expiratory wheeze. No crackles or accessory muscle use. Cardiac: regular rhythm, normal S1-2, 23/6 apical systolic murmur radiating to the axilla, no diastolic murmur. Abdomen: benign. Extremities: no edema, pulses intact. Neurologic: normal affect and conversation, nonfocal. Results & Data Laboratory Results BNP declined from 1624 to 692. Normal electrolytes, BUN 16, creatinine 0.73. Diagnostic Findings Chest x-ray yesterday showed persistent pulmonary edema. Decreased pleural effusion size. PG Care Time/CCT Total # of Minutes Spent Total Time Spent with Patient: Total time spent is greater than 50% in coordination of care (as documented) at patient's floor/unit and/or counseling patient: Coding Level of Care Code 10527 SUB INP/OBS CARE 2/35MIN Diagnoses ISLAS (dyspnea on exertion) R06.09 (HFpEF) heart failure with preserved ejection fraction I50.30 PSVT (paroxysmal supraventricular tachycardia) I47.10 Severe mitral regurgitation I34.0 COPD (chronic obstructive pulmonary disease) J44.9 Moderate pulmonary hypertension I27.20
[2024-10-26 11:42] VITALS: BP 90/54; RESP 18; TEMP 97.9
[2024-10-26 11:48] VITALS: PULSE 73
== END 2024-10-26 13:26 | disposition home or self-care (01) | DRG 308 ==
LOC: ED 09:00 → 2N 12:41 → SUATTDRO 12:41 → 2N 15:34